=== PATIENT | female | born 1940 | race Caucasian/White ===

== ENCOUNTER → 2017-01-23 | Day surgery (SDC) | payer OTHER ==
[~2017-01-23] VITALS: Ht 165.1 cm; Wt 102.3 kg
[~2017-01-23] MED LIST: ATOR80TA45 PO; CHLORHEXIDINE GLUCONATE 2 % 1 PACK (2 CLOTHS) TOPICAL PRN; CITA20TA4 PO; DEXAMETHASONE SOD PHOS 4 MG/ML VIAL ONE; DEXI30CA2 PO; FAMOTIDINE 20 MG/2 ML VIAL ONE; FISHOIL PO; FLUT1INH INH; FOLICAP PO; LACTATED RINGER'S 1000 ML IV PRN; LISI40TA PO; METF500T PO; METO50TA PO; METOPROLOL TARTRATE 25 MG TAB PO PRN; MIDAZOLAM HCL 2 MG/2 ML VIAL ONE; MORPHINE SULFATE 2 MG/ML INJ ONE; NATU65TA PO; ONDANSETRON HCL 4 MG/2 ML VIAL IM PRN; ONDANSETRON HCL 4 MG/2 ML VIAL IV PUSH PRN; POVIDONE IODINE 5% (ANTISEPSIS KIT) 4 APPLICATIONS EACH NARE PRN; SODIUM CHLORID 0.9% 500 ML IV PRN; SULFAMETHOXAZOLE-TRIMETHOPRIM DS 800-160 MG TAB PO ONE; VITA2000 PO; traMADol HCL 50 MG TAB PO PRN
[2017-01-23 10:53] LABS: BLOOD, URINE LARGE (NEG); GLUCOSE,URINE NEG (NEG); KETONE, URINE NEG (NEG); NITRITE,URINE NEG (NEG); PH, URINE 7.5 (5.0-8.5)
[2017-01-23 10:59] LABS: BACTERIA, URINE FEW /hpf; METHOD OF COLLECTION CLEAN CATCH; RBC, URINE 100-200 /hpf (0-3); SQUAMOUS EPITHELIAL CELL URINE > 8 /hpf (0-5); URINE COLOR YELLOW (YELLW/STRAW)
[2017-01-23 11:00] LABS: COMMENT (UR) CULTURE INDICATED; CULTURE IF INDICATED CULTURE INDICATED
[2017-01-23 14:45] VITALS: BP 172/92; PULSE 74; RESP 16; TEMP 98; O2SAT 99
--- NOTE | 2017-01-24 06:34 | MP ---
cc: MARLI CORTES MD DATE OF SURGERY 01/23/2017 PREOPERATIVE DIAGNOSES Postmenopausal bleeding. Endometrial hyperplasia on imaging and endometrial polyp. POSTOPERATIVE DIAGNOSES Postmenopausal bleeding. Endometrial hyperplasia. PROCEDURE Hysteroscopy with MyoSure, polypectomy. SURGEON MD Elvin ANESTHESIA Dr. Kendall. General by LMA. COMPLICATIONS None. ESTIMATED BLOOD LOSS 100 cc. INDICATIONS This 76-year-old underwent an ultrasound to evaluate her uterus after an episode of postmenopausal bleeding. She was only able to tolerated it poorly due to fecal and urinary incontinence but there was a suggestion of an endometrial polyp. FINDINGS At the time of surgery the patient was found to have a moderate amount of tissue on endocervical curettage. The uterus sounded to 8 cm. The hysteroscopic view of the uterus showed polypoid endometrium with some suspicious and irregular blood vessels and the entire appearance is suspicious for endometrial hyperplasia. There were multiple very small polyps but no discrete large polyp. PROCEDURE The patient was taken to the operating room, placed supine on the operating room table. After general anesthesia she was prepped and draped in low stirrups. A weighted vaginal speculum was placed in the posterior vault of the vagina. The anterior lip of the cervix was grasped with a single-tooth tenaculum. The uterine cervix was dilated to accept a small curette which was used to obtain an endocervical curettage. The cervix was then further dilated to accept a MyoSure hysteroscope which was inserted and, using saline as distension media, the findings above were noted. The MyoSure device was then used to sample the endometrium thoroughly throughout the uterine cavity and especially up in the patient's right isthmic portion of the uterus near the right tubal ostia because that is where the most polypoid tissue appeared. Postoperatively the fluid deficit was under 1000 cc. The patient had tolerated the procedure well. There was some bright red bleeding postoperatively as is typical with the MyoSure. Sponge, needle and instrument counts were correct. The patient was sent home with Bactri DS for a questionable urinalysis. She did not receive preop antibiotics. Marli Cortes MD PMF/SSB /12:41 PM /6:19 AM MTDD
== END | disposition home or self-care (01) ==
LOC: PHSDC 08:01
PROVIDERS: ATTEND Obstetrics & Gynecology
DX: N84.0 Polyp of corpus uteri (principal); N95.0 Postmenopausal bleeding; R82.99 Other abnormal findings in urine; E11.9 Type 2 diabetes mellitus without complications
CPT/HCPCS: 00952; 58561; 81001; 82948; 87086; 88305; J1100; J2250; J2270; J7120

== ENCOUNTER 2017-03-28 05:13 | Observation (INO) | payer OTHER ==
[~2017-03-28] VITALS: Ht 165.1 cm; Wt 102.7 kg
[~2017-03-28 05:13] MED LIST changes: -CHLORHEXIDINE GLUCONATE 2 % 1 PACK (2 CLOTHS) TOPICAL PRN; -DEXAMETHASONE SOD PHOS 4 MG/ML VIAL ONE; -FAMOTIDINE 20 MG/2 ML VIAL ONE; -FISHOIL PO; -LACTATED RINGER'S 1000 ML IV PRN; -METOPROLOL TARTRATE 25 MG TAB PO PRN; -MIDAZOLAM HCL 2 MG/2 ML VIAL ONE; -MORPHINE SULFATE 2 MG/ML INJ ONE; -NATU65TA PO; +OMEG100046 PO; -ONDANSETRON HCL 4 MG/2 ML VIAL IM PRN; -ONDANSETRON HCL 4 MG/2 ML VIAL IV PUSH PRN; -POVIDONE IODINE 5% (ANTISEPSIS KIT) 4 APPLICATIONS EACH NARE PRN; -SODIUM CHLORID 0.9% 500 ML IV PRN; -SULFAMETHOXAZOLE-TRIMETHOPRIM DS 800-160 MG TAB PO ONE; -traMADol HCL 50 MG TAB PO PRN
[2017-03-28] MEDS ORDERED: METRONIDAZOLE 500 MG/100 ML ISONTONIC SOLN IV SCH (05:45)
[2017-03-28] MEDS ORDERED: SODIUM CHLORID 0.9% 500 ML IV PRN (05:45)
[2017-03-28] MEDS ORDERED: POVIDONE IODINE 5% (ANTISEPSIS KIT) 4 APPLICATIONS EACH NARE PRN (05:45)
[2017-03-28] MEDS ORDERED: LEVOFLOXACIN 500 MG PREMIX INJ 100 ML IV SCH (05:45)
[2017-03-28] MEDS ORDERED: CHLORHEXIDINE GLUCONATE 2 % 1 PACK (2 CLOTHS) TOPICAL PRN (05:45)
[2017-03-28] MEDS ORDERED: HEPARIN SODIUM - SQ 10,000 UNITS/ML VIAL SQ SCH (05:45)
[2017-03-28] MEDS ORDERED: LACTATED RINGER'S 1000 ML IV PRN (05:45)
[2017-03-28] MEDS ORDERED: METOPROLOL TARTRATE 25 MG TAB PO PRN (05:45)
[2017-03-28] MEDS ORDERED: LIDOCAINE 1%/EPINEPHrine 1:100,000 SOLN 50 ML VIAL INFIL ONE (09:07)
[2017-03-28] MEDS ORDERED: METHYLENE BLUE 10 MG/ML VIAL OTHER ONE ×2 (09:10→10:07)
[2017-03-28] MEDS ORDERED: oxyCODONE/ACETAMINOPHEN 5 MG/325 MG TAB PO PRN ×2 (11:15)
[2017-03-28] MEDS ORDERED: SODIUM CHLORIDE 0.9% FLUSH 10 ML FLUSH IV FLUSH PRN (11:15)
[2017-03-28] MEDS ORDERED: ONDANSETRON HCL 4 MG/2 ML VIAL IVP PRN (11:15)
[2017-03-28] MEDS ORDERED: LORazepam 0.5 MG TAB PO PRN (11:15)
[2017-03-28] MEDS ORDERED: diphenhydrAMINE HCL 25 MG CAP PO PRN (11:15)
[2017-03-28] MEDS ORDERED: DO NOT ADM ANY ANTICOAGULANT DRUGS PRN ×3 (11:40→14:00)
[2017-03-28] MEDS ORDERED: MIDAZOLAM HCL 2 MG/2 ML VIAL ONE (11:43)
[2017-03-28] MEDS ORDERED: SUGAMMADEX SODIUM 200 MG/2 ML VIAL IV PUSH ONE (11:43)
[2017-03-28] MEDS ORDERED: *MEPERIDINE 25 MG INJ VIAL PERIprocedural Use ONLY ONE (11:51)
[2017-03-28] MEDS ORDERED: PROPOFOL 200 MG/20 ML AMP IV ONE (12:00)
[2017-03-28] MEDS ORDERED: ePHEDrine/NS 25 MG/5 ML SYRINGE IV ONE (12:00)
[2017-03-28] MEDS ORDERED: VECURONIUM BROMIDE 20 MG VIAL IV ONE (12:00)
[2017-03-28] MEDS: D5-1/2 NS + KCL 20 MEQ INJ 1,000 ML IV SCH ×2 (12:00→21:36)
[2017-03-28] MEDS ORDERED: PHENYLEPH/NS 1000 MCG/10 ML SYR IV ONE (12:00)
[2017-03-28] MEDS ORDERED: ROCURONIUM INJ 50 MG/5 ML SYRINGE IV PUSH ONE (12:00)
[2017-03-28] MEDS ORDERED: ONDANSETRON HCL 4 MG/2 ML VIAL IV ONE (12:00)
[2017-03-28] MEDS ORDERED: LIDOCAINE HCL 1% PF 5 ML SYRINGE OTHER ONE (12:00)
[2017-03-28] MEDS ORDERED: *morphine SULFATE 4 MG/ML PERIprocedure ONLY ONE (12:55)
[2017-03-28] MEDS: INSULIN NovoLIN REGULAR SUPPLEMENTAL SCALE SQ SCH ×3 (13:51→21:35)
[2017-03-28] MEDS: KETOROLAC TROMETHAMINE 30 MG/ML (IVP) VIAL IVP SCH ×2 (14:00→21:36)
[2017-03-28 18:00] VITALS: BP 118/57; PULSE 89; RESP 19; TEMP 96.9; O2SAT 97
[2017-03-28 20:00] VITALS: BP 128/60; PULSE 79; RESP 18; TEMP 98.3; O2SAT 97
[2017-03-28] MEDS: SODIUM CHLORIDE 0.9% FLUSH 10 ML FLUSH IV FLUSH SCH (21:00)
[2017-03-29] VITALS: BP 111/53; PULSE 80; RESP 18; TEMP 98.7; O2SAT 97
[2017-03-29 00:31] VITALS: O2SAT 99
[2017-03-29] MEDS: KETOROLAC TROMETHAMINE 30 MG/ML (IVP) VIAL IVP SCH ×2 (03:48→08:36)
[2017-03-29 04:00] VITALS: BP 129/58; PULSE 80; RESP 20; TEMP 98.5; O2SAT 97
[2017-03-29 05:47] LABS: AUTOMATED NEUTROPHIL # 5.9 TH/MM3 (1.8-7.7); BASOPHIL % 0.2 % (0.0-2.0); EOSINOPHIL % 0.5 % (0.0-4.0); HEMATOCRIT 33.1 % (35.0-46.0); HEMOGLOBIN 11.1 GM/DL (11.6-15.3); LYMPH % 22.2 % (9.0-44.0); MEAN CELL VOLUME 95.4 FL (80.0-100.0); MEAN CORPUSCULAR HGB CONC 33.5 % (32.0-36.0); MONO % 10.2 % (0.0-8.0); MONOCYTE # 0.9 TH/MM3 (0-0.9); NEUT % 66.9 % (16.0-70.0); PLATELET COUNT 216 TH/MM3 (150-450); RED BLOOD COUNT 3.47 MIL/MM3 (4.00-5.30); RED CELL DISTRIBUTION WIDTH 13.4 % (11.6-17.2); WHITE BLOOD COUNT 8.9 TH/MM3 (4.0-11.0)
[2017-03-29 06:02] LABS: BICARBONATE 27.6 MEQ/L (21.0-32.0); CALCIUM 8.1 MG/DL (8.5-10.1); CREATININE 0.56 MG/DL (0.50-1.00)
[2017-03-29] MEDS ORDERED: OXYC1TAB63 PO (07:49)
[2017-03-29 08:00] VITALS: BP 127/62; PULSE 75; RESP 20; TEMP 98.5; O2SAT 97
[2017-03-29] MEDS: INSULIN NovoLIN REGULAR SUPPLEMENTAL SCALE SQ SCH ×2 (08:00→12:00)
[2017-03-29] MEDS: D5-1/2 NS + KCL 20 MEQ INJ 1,000 ML IV SCH (08:37)
[2017-03-29] MEDS: SODIUM CHLORIDE 0.9% FLUSH 10 ML FLUSH IV FLUSH SCH (08:37)
[2017-03-29] MEDS ORDERED: LISINOPRIL 20 MG TAB PO SCH (09:00)
[2017-03-29] MEDS ORDERED: METOPROLOL TARTRATE 50 MG TAB PO SCH (09:00)
[2017-03-29] MEDS ORDERED: ATORVASTATIN 80 MG TAB PO SCH (09:00)
[2017-03-29] MEDS ORDERED: CITALOPRAM HYDROBROMIDE 20 MG TAB PO SCH (09:00)
[2017-03-29] MEDS ORDERED: PANTOPRAZOLE SOD 20 MG DELAYED RELEASE TAB PO SCH (09:00)
[2017-03-29] MEDS ORDERED: FLUTICASONE 100 MCG/VILANTEROL 25 MCG INHALER INH SCH (09:00)
[2017-03-29] MEDS ORDERED: PNEUMOCOCCAL POLYVALENT INJ 25 MCG/0.5 ML SYR IM ONE (10:00)
[2017-03-29 12:00] VITALS: BP 112/53; PULSE 67; RESP 19; TEMP 98.4; O2SAT 95
--- NOTE | 2017-04-01 12:32 | MP ---
cc: PRAKASH CORTES MD,DEBI CASILLAS MD DATE OF SURGERY 03/28/2017 PREOPERATIVE DIAGNOSIS Endometrial cancer. POSTOPERATIVE DIAGNOSIS Endometrial cancer with extensive adhesions. PROCEDURE Robotic-assisted laparoscopic hysterectomy, bilateral salpingo-oophorectomy, extensive lysis of adhesions, peritoneal biopsy. SURGEON Teodora Tracy. [employer]. ANESTHESIA General endotracheal. ESTIMATED BLOOD LOSS 200 cc. IV FLUIDS 1800 cc. URINE OUTPUT 300 cc. HISTORY A 76-year-old female with postmenopausal bleeding. Biopsy showed grade 1 endometrial adenocarcinoma. She was counseled regarding treatment and was in favor of surgery. She is seen again in the pre-op holding area where the findings are reviewed and the plan for surgery is discussed. Questions were asked and answered. She expressed good understanding and would like to move forward with surgery. FINDINGS The uterus sounds to approximately 6.5 cm. The uterus grossly appears normal. Tubes and ovaries grossly appear normal. There are adhesions in the pelvis. The colon is stuck to the left pelvic sidewall, adherent, blocking access to the left pelvic structures. There are adhesions in the region of the right lower quadrant, ileocecal region, and some adhesions between the omentum and the anterior abdominal wall consistent with her prior appendicitis as well as probable prior diverticulitis. Some diverticulosis was noted but without active diverticulitis. There was a single suspicious implant of the peritoneum on the right upper quadrant which was removed via excisional biopsy that was sent for frozen section analysis and was benign. The peritoneal cavity otherwise was smooth. Liver and diaphragm edges were smooth. Omentum, large and small bowel and adjacent mesentery were without obvious tumor implants. The uterus once removed showed the tumor to be approximately 2.5 cm. There was no obvious invasion into the myometrium, no obvious cervical extension. STATEMENT OF COMPLEXITY/MODIFIER The complexly of this case was increased for two principal reasons. One is her body habitus. She has a BMI of 38.5 with obesity-associated morbidity of diabetes. Also, there were extensive pelvic adhesions requiring significant additional time to lyse adhesions to gain safe access into the perineal cavity, restore normal anatomy and accomplish surgical objectives. Modifier should be applied accordingly. DETAILS OF PROCEDURE She was taken to the operating room, placed in the dorsal lithotomy position after general endotracheal anesthesia was administered. A timeout was undertaken. She was identified by sight recognition and hospital ID bracelet, and the proposed procedure was reviewed and confirmed. She was carefully positioned in padded Donis stirrups. Her arms were padded and secured to the sides. She was further secured to the operating table with eggcrate padding and tape in an across chest over the shoulder fashion. All sites were noted to be properly aligned with no malalignments or pressure points. She was prepped and draped in sterile fashion, placed in lithotomy position. The cervix was grasped. The uterine cavity was sounded. The cervix was dilated and a large VCare manipulator was used. Even though the uterus and cervix were small she had a very prominent rectocele and a mild to moderate cystocele with some prolapse and redundancy of the vaginal mucosa and the large VCare was used to help retract this tissue. We completed draping in anticipation of laparoscopy with change of sterile gloves. We confirmed that an orogastric tube was in the stomach on suction. With manual elevation of the abdominal wall under direct laparoscopic visualization a 5 mm cannula was placed in the left upper quadrant. An atraumatic entry was confirmed. Carbon dioxide gas was insufflated. Under laparoscopic visualization a 12 mm cannula was placed in the midline above the umbilicus. An 8 mm cannula was placed in the right upper quadrant and left lateral quadrant, and the original 5 mm cannula exchanged for an 8 mm cannula. Sharp dissection and blunt dissection were used to take down adhesions between the omentum and the anterior abdominal wall and free distal omentum from its adherence against the left pelvic sidewall and pelvic structures until the omentum could be mobilized. Additional adhesions were taken down in the right lower quadrant to help mobilize the small bowel. She was placed in Trendelenburg position. Peritoneal washings were obtained for cytology. The anatomy was explored with findings as described above. The small bowel was folded back on its mesenteric root to the extent possible. Three Ray-Jose Roberto sponges were placed around the root of the small bowel mesentery. The robotic system was brought into the operative field and attached in the usual fashion. Monopolar scissors, fenestrated bipolar forceps and ProGrasp manipulators were placed in arms #1, 2 and 3 respectively, and I took my place at the surgeon's console. Sharp dissection was continued to mobilize adhesions in the right lower quadrant from the prior appendicitis. The appendix was surgically absent. The ileocecal region was mobilized as it was scarred below the pelvic brim. The adhesions were taken down to mobilize the ileocecal region above the pelvic brim to gain access to the right pelvic structures. The right round ligament was isolated, cauterized and transected. The anterior and posterior leafs of the broad ligament were opened. The right ureter was identified. The right infundibulopelvic ligament was isolated. The intervening peritoneum was opened. The infundibulopelvic ligament was isolated to the level of the pelvic brim where it was cauterized and transected. The posterior peritoneum was opened along the right side of the uterus and cervix. Adhesions were taken down to free the cul-de-sac. The right vesicouterine peritoneum was dissected off the lower uterine segment and cervix. The right uterine vessels were skeletonized. The right uterine vessels were cauterized. They were fairly hemorrhagic prominent vessels and they were not yet transected until the contralateral vasculature was secured. Additional adhesions were taken down mobilizing the colon from its attachments against the right pelvic sidewall and to free additional adhesions from the cul-de-sac to mobilize the left ovary which was stuck against the left pelvic sidewall posteriorly. The left round ligament was isolated, cauterized and transected. The anterior and posterior leafs of the broad ligament were opened. The left ureter was identified. The left infundibulopelvic ligament was isolated. The intervening peritoneum was opened. The infundibulopelvic ligament was isolated to the level of the pelvic brim where it was cauterized and transected. The posterior peritoneum was opened along the left side of the uterus and cervix. The left vesicouterine peritoneum was dissected off the lower uterine segment and cervix. The left uterine vessels were skeletonized. The left uterine vessels were cauterized. The uterus was now blanched as the major blood supply was secured. The left uterine vessels were transected. The cardinal, paracervical and uterosacral ligaments were isolated, cauterized and transected in a stepwise fashion thereby freeing the attachments along the left side of the uterus and cervix. Attention was redirected toward the right side where the right uterine vessels were transected. The cardinal, paracervical and uterosacral ligaments were isolated, cauterized and transected in a stepwise fashion thereby freeing attachments along the right side of the uterus and cervix. A circumferential colpotomy was performed the cervix from the upper vagina. The specimen was withdrawn transvaginally including uterus, cervix, tubes and ovaries, and a pneumo-occluder balloon was placed in the vagina to maintain pneumoperitoneum. Instruments 1 and 3 were exchanged for needle drivers as a 0 Vicryl suture was introduced. The vaginal cuff was closed starting at the left corner, full-thickness closure including the posterior peritoneum, edge of the uterosacral ligament and tied via instrument tie. Full-thickness running continuous closure was held on countertraction across the vaginal apex to the contralateral corner where it was similarly fixed, secured and tied via instrument tie. The needle was cut and removed. The pelvis was thoroughly irrigated. The integrity of the bladder was confirmed by filling the bladder with saline dyed with methylene blue. The bladder distended nicely under pressure. There were no areas of weakness in the bladder wall, no areas of blue, certainly no extravasation of dye, and a good margin between the vaginal cuff suture line and the bladder edge. The peritoneum and some perivesical fat was bleeding a little bit and this was re-approximated and rendered hemostatic with [id number] 3-0 Vicryl sutures tied via instrument tie. The needle was cut and removed. The bladder was drained. The pelvis was again irrigated. There was good peristalsis of ureters bilaterally. The sites were hemostatic and to assist in continued hemostasis some hemostatic Martha powder was placed across the vaginal cuff and pelvic sidewalls. Preliminary pathology had returned showing no invasive disease. It was felt that further dissection would be associated with morbidity that exceeded benefit. Therefore, it is felt that all reasonable surgical objectives in this patient had been completed. The robotic instruments were removed. The robotic system was disengaged from the operative field. I entered the bedside under sterile condition. The 12 mm fascial defect was closed with 0 Vicryl sutures using a needle pass fascia closure apparatus. This rendered the fascia completely airtight and hemostatic. The remaining cannulas were withdrawn. Carbon dioxide gas was removed from the peritoneal cavity. 3-0 Vicryl subcutaneous, 3-0 Vicryl subcuticular and Steri-Strips were used to close these incisions. She was placed in lithotomy position. Pelvic exam confirmed the vaginal cuff was well-supported and hemostatic. There were no vaginal lacerations. There was a little bit of mucosal irritation near the introitus and the remainder of the Martha hemostatic powder was placed in this region in the vagina. There were no remaining foreign objects in the vagina. Preliminary counts as well as now final counts were correct. It should be noted prior to closure of the fascial laparoscopic incision each of the three Ray-Jose Roberto sponges that were placed in the peritoneal cavity had been removed through the 12 mm cannula. Each were inspected and noted to be removed in their entirety. Visual inspection had confirmed there were no remaining foreign objects in the peritoneum. Now given hemostasis and correct counts, she was returned to dorsal supine position and was pending reversal of anesthesia when I left the operating room to precede her to the post-anesthesia care unit. Teodora Tracy MD KM/BT : 04/01/2017/7:07 AM /12:02 PM
--- NOTE | 2017-04-02 16:56 | MD ---
cc: PRAKASH CORTES MD,DEBI CASILLAS MD ADMISSION DATE: 03/28/2017 DISCHARGE DATE: 03/29/2017 PROCEDURE: Robotic-assisted laparoscopic hysterectomy bilateral salpingo-oophorectomy, Extensive lysis of adhesions. DIAGNOSIS Endometrial cancer. HOSPITAL COURSE She did well in early postop period and remained hemodynamically stable tolerating oral intake. Hampton catheter removed pending voiding ins and outs 1919/0 LABORATORY DATA Postop day #1. H&H the 11.1 and 33.1. Electrolytes essentially normal BUN and creatinine 50.56 PHYSICAL EXAMINATION IN GENERAL: Afebrile, pulse 79-89, respirations 15-20, blood pressure 111-129 over 56-60, O2 saturations greater than equal to 97%. She is alert and oriented x3. LUNGS: Clear mild rales bases. CARDIOVASCULAR SYSTEM: Regular rate and rhythm. ABDOMEN: Soft. Incisions clean and dry. GYNECOLOGY: No bleeding. EXTREMITIES: Nontender SCDs intact. ASSESSMENT Postop day #1. Preliminary pathology and findings at the time of surgery and steps taken were discussed and reviewed, activities and restrictions are again reviewed. Questions were asked and answered. She expressed good understanding. PLAN 1. The patient is discharged to home today. 2. She is to resume prior medications prescription for Percocet for pain. 3. She is to contact our office should she have any questions or problems between now and the time of followup and she is to contact our office also to ensure that she has followup within approximately 2 weeks. MD WILLIAM Olmstead/jennifer /7:51 AM /4:37 PM YASMIN
== END 2017-03-29 15:14 | disposition home health service (06) ==
LOC: HSDC 05:13 → HSDI 11:14 → N07A 15:16
PROVIDERS: ADMIT Obstetrics & Gynecology Gynecologic Oncology; ATTEND Obstetrics & Gynecology Gynecologic Oncology
DX: C54.1 Malignant neoplasm of endometrium (principal); N95.0 Postmenopausal bleeding; N73.6 Female pelvic peritoneal adhesions (postinfective); E78.00 Pure hypercholesterolemia, unspecified; I12.9 Hypertensive chronic kidney disease with stage 1 through stage 4 chronic kidney disease, or unspecified chronic kidney disease; E11.22 Type 2 diabetes mellitus with diabetic chronic kidney disease; N18.9 Chronic kidney disease, unspecified; J44.9 Chronic obstructive pulmonary disease, unspecified; E66.9 Obesity, unspecified; Z68.38 Body mass index [BMI] 38.0-38.9, adult; Z23 Encounter for immunization; Z79.84 Long term (current) use of oral hypoglycemic drugs
CPT/HCPCS: 00840; 58552; 80048; 82948; 85025; 86850; 86900; 86901; 88112; 88305; 88307; 88331; 90732; 94150; 96361; 96372; 96374; 96376; G0009; G0378; J1644; J1885; J2175; J2250; J2270; J2370; J2405; J3010; J3480; J7120; 90471

== ENCOUNTER 2017-04-21 16:18 | Inpatient (IN) | payer OTHER, MEDICARE ==
[~2017-04-21] VITALS: Ht 165.1 cm; Wt 101.0 kg
[2017-04-21] VITALS (7 sets, daily range): BP systolic 121–143; BP diastolic 58–66; PULSE 22–102; RESP 18–22; TEMP 98–99.3; O2SAT 94–96
[~2017-04-21 16:18] MED LIST changes: +OXYC1TAB63 PO
[2017-04-21] MEDS ORDERED: IOHEXOL 350 MG/ML 10 ML VIAL (for RAD DIAG) IVCONTRAST ONE (16:19)
[2017-04-21] MEDS ORDERED: RANO500 PO (16:45)
[2017-04-21] MEDS ORDERED: SODIUM CHLORIDE 0.9% FLUSH 10 ML FLUSH IVF PRN (16:45)
--- NOTE | 2017-04-21 17:05 | PD ---
HPI Chief Complaint: Pain: Acute or Chronic Time Seen by Provider: 16:38 Travel History International Travel<30 days: No Contact w/Intl Traveler<30days: No Traveled to known affect area: No History of Present Illness HPI Patient is a 76-year-old female presenting to the emergency room for evaluation of chest pain. Patient states it started 2 days ago, pain is midsternal radiating to the right anterior chest wall and to her back. She states the pain radiates down her arm, she currently rates her pain an 8 out of 10 and states it is pressure-like and painful. She reports shortness of breath which is worse with exertion. She reports increased activity intolerance over the last 2 days. She reports that she is unable to even do laundry. She denies any dizziness, diaphoresis nausea, vomiting, abdominal pain. Patient had a hysterectomy 2 weeks ago. She has a history of hypertension, type 2 diabetes, hyperlipidemia, GERD, asthma. Symptom onset was gradual, symptom severity is moderate, there are no alleviating factors, symptoms are exacerbated with movement. PFSH Past Medical History Hx Anticoagulant Therapy: Yes Asthma: Yes Depression: Yes Cancer: Yes (CERVICAL CANCER) High Cholesterol: Yes Diabetes: Yes Patient Takes Glucophage: Yes GERD: Yes Hypertension: Yes Respiratory: Yes (ASTHMA) Tetanus Vaccination: > 5 Years Influenza Vaccination: Yes ?: Not : 3 Para: 3 Past Surgical History Abdominal Surgery: Yes (APPENDECTOMY) Eye Surgery: Yes (BILATERAL CATARACT EXTRACTION WITH IOL) Hysterectomy: Yes Joint Replacement: Yes (RT KNEE) Tonsillectomy: Yes Social History Alcohol Use: Yes (RARE) Tobacco Use: No Substance Use: No Allergies-Medications (Allergen,Severity, Reaction): Coded Allergies: Penicillins (Verified Allergy, Severe, Shortness of Breath, 03/28/17) SWELLING aspirin (Verified Allergy, Severe, Swelling, 03/28/17) SWELLING WITH SHORTNESS OF BREATH Reported Meds & Prescriptions Reported Meds & Active Scripts Active Reported Ranexa ER 12 HR (Ranolazine) 500 Mg Tab 500 Mg PO BID Fish Oil 1,000 mg Softgel ([place]-3/Dha/Epa/Fish Oil) 1,000 Mg (120 Mg-180 Mg) Capsule 1 Cap PO DAILY Vitamin D3 (Cholecalciferol) 2,000 Unit Cap 2,000 Units PO DAILY Metoprolol Tartrate 50 Mg Tab 25 Mg PO DAILY Metformin (Metformin HCl) 500 Mg Tab 500 Mg PO BIDPC Lisinopril 40 Mg Tab 40 Mg PO DAILY Dexilant (Dexlansoprazole) 30 Mg Cap.bp 1 Cap PO DAILY Citalopram (Citalopram Hydrobromide) 20 Mg Tab 20 Mg PO DAILY Breo Ellipta Inh (Fluticasone/Vilanterol) 100-25 Mcg/Act Inh 1 Puff INH DAILY Use daily at the same time. Atorvastatin (Atorvastatin Calcium) 80 Mg Tab 80 Mg PO DAILY Animi-3 1 mg (Folic Acid-Vit B6-Vit B12-Vit) 500-1,000-1 Cap 2 Cap PO DAILY Review of Systems Except as stated in HPI: all other systems reviewed are Neg Eyes: No: Blurred Vision HENT: No: Headaches Cardiovascular: Positive: Chest Pain or Discomfort, Tachycardia, Dyspnea on exertion, No: Palpitations, Edema Respiratory: Positive: Shortness of Breath, No: Cough Gastrointestinal: Positive: Nausea, No: Vomiting, Abdominal Pain Musculoskeletal: No: Myalgias Neurologic: No: Weakness, Dizziness, Syncope Physical Exam Narrative GENERAL: Overweight, well-developed, alert elderly female. Presenting in no acute distress. SKIN: Warm and dry. Rash to abdominal fold, hyperpigmented border with central clearing. No skin excoriation. HEAD: Atraumatic. Normocephalic. EYES: Pupils equal and round. No scleral icterus. No injection or drainage. ENT: No nasal bleeding or discharge. Mucous membranes pink and moist. NECK: Trachea midline. No JVD. CARDIOVASCULAR: Tachycardic, no murmur appreciated. RESPIRATORY: No accessory muscle use. Breath sounds equal bilaterally, slightly diminished in bases.. GASTROINTESTINAL: Abdomen soft, mildly tender over surgical incisions, nondistended. Hepatic and splenic margins not palpable. No rebound, no guarding. MUSCULOSKELETAL: Extremities without clubbing, cyanosis, or edema. No obvious deformities. NEUROLOGICAL: Awake and alert. No obvious cranial nerve deficits. Motor grossly within normal limits. Five out of 5 muscle strength in the arms and legs. Normal speech. PSYCHIATRIC: Appropriate mood and affect; insight and judgment normal. Data Data Last Documented VS Vital Signs Date Time Temp Pulse Resp B/P (MAP) Pulse Ox O2 Delivery O2 Flow Rate FiO2 04/21/17 17:43 98.0 97 20 143/65 (91) 96 Nasal Cannula 2.00 Orders Orders Electrocardiogram (04/21/17 16:40) B-Type Natriuretic Peptide (04/21/17 16:40) Ckmb (Isoenzyme) Profile (04/21/17 16:40) Complete Blood Count With Diff (04/21/17 16:40) Comprehensive Metabolic Panel (04/21/17 16:40) Magnesium (Mg) (04/21/17 16:40) Prothrombin Time / Inr (Pt) (04/21/17 16:40) Act Partial Throm Time (Ptt) (04/21/17 16:40) Troponin I (04/21/17 16:40) Lipase (04/21/17 16:40) Chest, Single Ap (04/21/17 16:40) Ecg Monitoring (04/21/17 16:40) Bilateral Bp Monitoring (04/21/17 16:40) Iv Access Insert/Monitor (04/21/17 16:40) Oximetry (04/21/17 16:40) Oxygen Administration (04/21/17 16:40) Sodium Chloride 0.9% Flush (Ns Flush) (04/21/17 16:45) Ct Pulmonary Angiogram (04/21/17 ) Urinalysis - C+S If Indicated (04/21/17 17:39) Iohexol 350 Inj (Omnipaque 350 Inj) (04/21/17 16:19) Enoxaparin Inj (Lovenox Inj) (04/21/17 19:00) Oxycodone-Acetamin 5-325 Mg (Percocet (04/21/17 19:00) Admit Order (Ed Use Only) (04/21/17 19:19) Labs Laboratory Tests Test 04/21/17 16:35 04/21/17 18:40 White Blood Count 16.9 TH/MM3 Red Blood Count 3.99 MIL/MM3 Hemoglobin 12.5 GM/DL Hematocrit 37.8 % Mean Corpuscular Volume 94.6 FL Mean Corpuscular Hemoglobin 31.3 PG Mean Corpuscular Hemoglobin Concent 33.1 % Red Cell Distribution Width 13.4 % Platelet Count 251 TH/MM3 Mean Platelet Volume 7.8 FL Neutrophils (%) (Auto) 80.1 % Lymphocytes (%) (Auto) 9.5 % Monocytes (%) (Auto) 10.0 % Eosinophils (%) (Auto) 0.2 % Basophils (%) (Auto) 0.2 % Neutrophils # (Auto) 13.5 TH/MM3 Lymphocytes # (Auto) 1.6 TH/MM3 Monocytes # (Auto) 1.7 TH/MM3 Eosinophils # (Auto) 0.0 TH/MM3 Basophils # (Auto) 0.0 TH/MM3 CBC Comment DIFF FINAL Differential Comment Prothrombin Time 10.7 SEC Prothromb Time International Ratio 1.1 RATIO Activated Partial Thromboplast Time 22.8 SEC Blood Urea Nitrogen 10 MG/DL Creatinine 0.68 MG/DL Random Glucose 115 MG/DL Total Protein 6.5 GM/DL Albumin 3.0 GM/DL Calcium Level 8.4 MG/DL Magnesium Level 1.5 MG/DL Alkaline Phosphatase 102 U/L Aspartate Amino Transf (AST/SGOT) 13 U/L Alanine Aminotransferase (ALT/SGPT) 17 U/L Total Bilirubin 1.2 MG/DL Sodium Level 137 MEQ/L Potassium Level 3.9 MEQ/L Chloride Level 101 MEQ/L Carbon Dioxide Level 30.3 MEQ/L Anion Gap 6 MEQ/L Estimat Glomerular Filtration Rate 84 ML/MIN Total Creatine Kinase 29 U/L Troponin I LESS THAN 0.02 NG/ML B-Type Natriuretic Peptide 28 PG/ML Lipase 178 U/L MDM Medical Decision Making Medical Screen Exam Complete: Yes Emergency Medical Condition: Yes Interpretation(s) Laboratory Tests Test 04/21/17 16:35 White Blood Count 16.9 TH/MM3 Red Blood Count 3.99 MIL/MM3 Hemoglobin 12.5 GM/DL Hematocrit 37.8 % Mean Corpuscular Volume 94.6 FL Mean Corpuscular Hemoglobin 31.3 PG Mean Corpuscular Hemoglobin Concent 33.1 % Red Cell Distribution Width 13.4 % Platelet Count 251 TH/MM3 Mean Platelet Volume 7.8 FL Neutrophils (%) (Auto) 80.1 % Lymphocytes (%) (Auto) 9.5 % Monocytes (%) (Auto) 10.0 % Eosinophils (%) (Auto) 0.2 % Basophils (%) (Auto) 0.2 % Neutrophils # (Auto) 13.5 TH/MM3 Lymphocytes # (Auto) 1.6 TH/MM3 Monocytes # (Auto) 1.7 TH/MM3 Eosinophils # (Auto) 0.0 TH/MM3 Basophils # (Auto) 0.0 TH/MM3 CBC Comment DIFF FINAL Differential Comment Prothrombin Time 10.7 SEC Prothromb Time International Ratio 1.1 RATIO Activated Partial Thromboplast Time 22.8 SEC Blood Urea Nitrogen 10 MG/DL Creatinine 0.68 MG/DL Random Glucose 115 MG/DL Total Protein 6.5 GM/DL Albumin 3.0 GM/DL Calcium Level 8.4 MG/DL Magnesium Level 1.5 MG/DL Alkaline Phosphatase 102 U/L Aspartate Amino Transf (AST/SGOT) 13 U/L Alanine Aminotransferase (ALT/SGPT) 17 U/L Total Bilirubin 1.2 MG/DL Sodium Level 137 MEQ/L Potassium Level 3.9 MEQ/L Chloride Level 101 MEQ/L Carbon Dioxide Level 30.3 MEQ/L Anion Gap 6 MEQ/L Estimat Glomerular Filtration Rate 84 ML/MIN Total Creatine Kinase 29 U/L Troponin I LESS THAN 0.02 NG/ML B-Type Natriuretic Peptide 28 PG/ML Lipase 178 U/L Vital Signs Date Time Temp Pulse Resp B/P (MAP) Pulse Ox O2 Delivery O2 Flow Rate FiO2 04/21/17 16:43 96 Nasal Cannula 2.00 04/21/17 16:43 22 96 Nasal Cannula 2.00 04/21/17 16:40 101 22 133/66 (88) 96 Nasal Cannula 2.00 121/58 (79) 04/21/17 16:32 98.1 102 22 133/66 (88) 95 Differential Diagnosis ACS versus AMI versus [place] versus pneumonia versus pulmonary embolism versus other Narrative Course Patient is a 76-year-old female presented for evaluation of chest pain. Patient is tachycardic and reporting shortness of breath on arrival. Vital signs are stable. Labs and imaging ordered and pending. Patient did have a hysterectomy 2 weeks ago, including the differential would be a pulmonary embolism. Initial EKG shows sinus tachycardia, possible left atrial enlargement , possible left ventricular hypertrophy. Rate is 102, this is reviewed by my attending physician. Chest x-ray which is read by the radiologist shows no acute findings. Minimal basilar atelectasis. Cardiac silhouette is mildly enlarged. CBC with a white blood cell count of 16.9 with left shift Chemistry with no acute findings Cardiac enzymes negative 1 set BNP is 28 CT angiogram shows positive for pulmonary embolism and subsegmental arteries supplying bilateral upper lobes. No focal infiltrates are seen. Patient was started on Lovenox 100 mg/kg. [facility] patient for admission. Pt made aware of findings and plan. Percocet ordered for pain. Discussed with Dr. Harper. Admit orders placed. Diagnosis Primary Impression: Pulmonary embolism Qualified Codes: I26.99 - Other pulmonary embolism without acute cor pulmonale Admitting Information Admitting Physician Requests: Admit Condition: Stable Miriam Shipley Apr 21, 2017 17:04
--- NOTE | 2017-04-21 17:08 | RADRPT ---
EXAM DATE/TIME: 04/21/2017 16:47 [facility] COMPARISON: No previous studies available for comparison. INDICATIONS : Right sided chest pain for three days. MEDICAL HISTORY : Chronic obstructive pulmonary disease. Diabetes mellitus type II. Hypertension. SURGICAL HISTORY : None. ENCOUNTER: Initial ACUITY: 3 days PAIN SCORE: 9/10 LOCATION: Right chest FINDINGS: A single view of the chest demonstrates the lungs to be symmetrically aerated without evidence of mas s, infiltrate or effusion. The cardiomediastinal contours are prominent. Osseous structures are inta ct. CONCLUSIO No acute findings. Minimal basilar atelectasis. Cardiac silhouette mildly enlarged. Campbell Ball MD on April 21, 2017 at 17:06 Board Certified Radiologist. This report was verified electronically.
--- NOTE | 2017-04-21 17:27 | PD ---
Physical Exam Date Seen by Provider: Apr 21, 2017 Narrative This patient presents for the evaluation of a 2 day history of chest pain. Data Data Last Documented VS Vital Signs Date Time Temp Pulse Resp B/P (MAP) Pulse Ox O2 Delivery O2 Flow Rate FiO2 04/21/17 16:43 96 Nasal Cannula 2.00 04/21/17 16:43 22 04/21/17 16:40 101 133/66 (88) 121/58 (79) 04/21/17 16:32 98.1 Orders Orders Electrocardiogram (04/21/17 16:40) B-Type Natriuretic Peptide (04/21/17 16:40) Ckmb (Isoenzyme) Profile (04/21/17 16:40) Complete Blood Count With Diff (04/21/17 16:40) Comprehensive Metabolic Panel (04/21/17 16:40) Magnesium (Mg) (04/21/17 16:40) Prothrombin Time / Inr (Pt) (04/21/17 16:40) Act Partial Throm Time (Ptt) (04/21/17 16:40) Troponin I (04/21/17 16:40) Lipase (04/21/17 16:40) Chest, Single Ap (04/21/17 16:40) Ecg Monitoring (04/21/17 16:40) Bilateral Bp Monitoring (04/21/17 16:40) Iv Access Insert/Monitor (04/21/17 16:40) Oximetry (04/21/17 16:40) Oxygen Administration (04/21/17 16:40) Sodium Chloride 0.9% Flush (Ns Flush) (04/21/17 16:45) Ct Pulmonary Angiogram (04/21/17 ) MDM Supervised Visit with SHAMA: Yes Interpretation(s) EKG shows a sinus rhythm with a rate of 102. Narrative Course I, Dr. Gonzalez, have reviewed the advance practice practitioner's documentation and am in agreement, met with the patient face to face, made the diagnosis, and the medical decision making was done by me. *My assessment and Findings: Patient is awake and alert and in no distress. Her chief complaint to me was that she needed to go to the bathroom. Please see Miriam Velazquez NP's note for results of laboratory and radiographic evaluation, ED course, final diagnosis and disposition Rhiannon Gonzalez MD Apr 21, 2017 17:27
[2017-04-21 17:34] LABS: AUTOMATED NEUTROPHIL # 13.5 TH/MM3 (1.8-7.7); BASOPHIL % 0.2 % (0.0-2.0); EOSINOPHIL % 0.2 % (0.0-4.0); HEMATOCRIT 37.8 % (35.0-46.0); HEMOGLOBIN 12.5 GM/DL (11.6-15.3); LYMPH % 9.5 % (9.0-44.0); LYMPHOCYTE # 1.6 TH/MM3 (1.0-4.8); MEAN CELL VOLUME 94.6 FL (80.0-100.0); MEAN CORPUSCULAR HEMOGLOBIN 31.3 PG (27.0-34.0); MEAN CORPUSCULAR HGB CONC 33.1 % (32.0-36.0); MEAN PLATELET VOLUME 7.8 FL (7.0-11.0); MONOCYTE # 1.7 TH/MM3 (0-0.9); NEUT % 80.1 % (16.0-70.0); PLATELET COUNT 251 TH/MM3 (150-450); RED BLOOD COUNT 3.99 MIL/MM3 (4.00-5.30); RED CELL DISTRIBUTION WIDTH 13.4 % (11.6-17.2); WHITE BLOOD COUNT 16.9 TH/MM3 (4.0-11.0)
[2017-04-21 17:43] LABS: INTERNATIONAL NORMALIZED RATIO 1.1 RATIO; PROTHROMBIN TIME - PATIENT 10.7 SEC (9.8-11.6)
[2017-04-21 18:11] LABS: AST (GOT) 13 U/L (15-37); BICARBONATE 30.3 MEQ/L (21.0-32.0); BLOOD UREA NITROGEN 10 MG/DL (7-18); CALCIUM 8.4 MG/DL (8.5-10.1); CHLORIDE 101 MEQ/L (98-107); CREATININE 0.68 MG/DL (0.50-1.00); GLOMERULAR FILTRATION RATE 84 ML/MIN (>89); GLUCOSE,RANDOM 115 MG/DL (74-106); MAGNESIUM 1.5 MG/DL (1.5-2.5); SODIUM (NA) 137 MEQ/L (136-145)
[2017-04-21 18:16] LABS: ALKALINE PHOSPHATASE 102 U/L (45-117); ALT (GPT) 17 U/L (10-53); TOTAL BILIRUBIN ADULT 1.2 MG/DL (0.2-1.0); TOTAL PROTEIN 6.5 GM/DL (6.4-8.2); TROPONIN I LESS THAN 0.02 NG/ML (0.02-0.05)
--- NOTE | 2017-04-21 18:47 | RADRPT ---
EXAM DATE/TIME: 04/21/2017 18:18 [facility] COMPARISON: CHEST SINGLE AP, April 21, 2017, 16:47. INDICATIONS : Chest pain and shortness of breath. IV CONTRAST: 70 cc Omnipaque 350 (iohexol) IV RADIATION DOSE: 10.69 CTDIvol (mGy) MEDICAL HISTORY : Cardiovascular disease. Hypertension. Diabetes mellitus type 2.Cervical cancer. SURGICAL HISTORY : Appendectomy. Hysterectomy. ENCOUNTER: Initial ACUITY: 2 days PAIN SCALE: 6/10 LOCATION: Right lower chest TECHNIQUE: Volumetric scanning of the chest was performed using a pulmonary embolism protocol MIP images were re constructed. Using automated exposure control and adjustment of the mA and/or kV according to patien t size, radiation dose was kept as low as reasonably achievable to obtain optimal diagnostic quality images. DICOM format image data is available electronically for review and comparison. Follow-up recommendations for detected pulmonary nodules are based at a minimum on nodule size and pa tient risk factors according to Fleischner Society Guidelines. FINDINGS: PULMONARY ARTERIES: Filling defects are seen in one medial subsegmental pulmonary artery medial upper lobe and into subse gmental arteries in the left upper lobe. No central defects in the main, left, or right pulmonary ar teries. LUNGS: Minimal linear scarring or atelectasis at the right lung base. No focal areas of consolidation. PLEURAE: There is no pleural thickening or pleural effusion. MEDIASTINUM: Pretracheal lymph node measures 1.3 cm. No other enlarged nodes seen. CONCLUSION: 1. Positive for pulmonary embolism in subsegmental arteries supplying bilateral upper lobes. 2. No focal infiltrates seen. Stevo Colon MD on April 21, 2017 at 18:40 Board Certified Radiologist. This report was verified electronically.
[2017-04-21] MEDS ORDERED: oxyCODONE/ACETAMINOPHEN 5 MG/325 MG TAB PO ONE (19:00)
[2017-04-21] MEDS ORDERED: ENOXAPARIN SODIUM 100 MG/ML SYRINGE SQ ONE (19:00)
[2017-04-21 19:22] LABS: BACTERIA, URINE RARE /hpf; BILIRUBIN, URINE NEG (NEG); BLOOD, URINE NEG (NEG); GLUCOSE,URINE NEG (NEG); KETONE, URINE NEG (NEG); NITRITE,URINE NEG (NEG); SQUAMOUS EPITHELIAL CELL URINE 6 /hpf (0-5); URINE COLOR YELLOW (YELLW/STRAW); URINE LEUKOCYTE ESTERASE MOD (NEG)
--- NOTE | 2017-04-21 19:29 | HHI.HP ---
HPI Service [facility] Primary Care Physician Non-Staff Admission Diagnosis PULMONARY EMBOLISM Diagnoses: (1) Pulmonary embolism Diagnosis: Principal (2) Chest pain Diagnosis: Principal (3) Endometrial cancer Diagnosis: Principal (4) Leukocytosis Diagnosis: Principal (5) Dehydration Diagnosis: Principal (6) DM (diabetes mellitus) Diagnosis: Principal Travel History International Travel<30 Days: No Contact w/Intl Traveler <30 Da: No Traveled to Known Affected Are: No History of Present Illness This is a 76-year-old female with a PMH of Depression, HTN, DM and Endometrial CA who presented to the ER w/ complaints of chest pain and SOB x2 days. States pain is substernal, intermittent, 8-9/10, w/ radiation to right shoulder, worse w/ inspiration. Denies fever, chills or cough. Follows w/ Dr. Anand for Cardiology as outpatien. S/p Hysterectomy 04/01/[address] Tracy for Endometrial CA, reports no complications since surgery. On arrival, BP 133/66, HR 102, O2 sat 95% on RA, Afebrile. CBC 16.9. Chemistry unremarkable. GFR 84. Troponin negative. INR 1.1. UA negative. CTA Pulm positive for pulmonary embolism and subsegmental arteries supplying bilateral upper lobes but no infiltrate seen. S/p Lovenox 100mg sq in ER. No previous h/o PE. Review of Systems Except as stated in HPI: all other systems reviewed are Neg ROS: 14 point review of systems otherwise negative. Past Family Social History Past Medical History PMH: Depression, HTN, DM and Endometrial CA Past Surgical History PAST SURGICAL HISTORY: Appendectomy, Cataract Surgery, Hysterectomy, Right Knee Replacement, Tonsillectomy Allergies: Coded Allergies: Penicillins (Verified Allergy, Severe, Shortness of Breath, 03/28/17) SWELLING aspirin (Verified Allergy, Severe, Swelling, 03/28/17) SWELLING WITH SHORTNESS OF BREATH Family History PAST FAMILY HISTORY: Reviewed. No h/o DM or CAD Social History PAST SOCIAL HISTORY: Occasional alcohol. Negative for tobacco or drugs. Physical Exam Vital Signs Vital Signs Date Time Temp Pulse Resp B/P (MAP) Pulse Ox O2 Delivery O2 Flow Rate FiO2 04/21/17 17:43 98.0 97 20 143/65 (91) 96 Nasal Cannula 2.00 04/21/17 16:43 96 Nasal Cannula 2.00 04/21/17 16:43 22 96 Nasal Cannula 2.00 04/21/17 16:40 101 22 133/66 (88) 96 Nasal Cannula 2.00 121/58 (79) 04/21/17 16:35 102 20 04/21/17 16:32 98.1 102 22 133/66 (88) 95 Physical Exam PE: GENERAL: Very pleasant elderly white female in no acute distress. On NC HEENT: PERRLA, EOMI. No scleral icterus or conjunctival pallor. No lid lag or facial droop. CARDIOVASCULAR: Regular rate and rhythm. No obvious murmurs to auscultation. No chest tenderness to palpation. RESPIRATORY: No obvious rhonchi or wheezing. Clear to auscultation. Breath sounds equal bilaterally. GASTROINTESTINAL: Abdomen soft, non-tender, nondistended. BS normal. Mild tenderness over surgical site. MUSCULOSKELETAL: Extremities without clubbing, cyanosis, or edema. No obvious deformities. NEUROLOGICAL: Awake, alert and oriented x4. No focal neurologic deficits. Moving both upper and lower extremities spontaneously. Laboratory Laboratory Tests Test 04/21/17 16:35 04/21/17 18:40 White Blood Count 16.9 Red Blood Count 3.99 Hemoglobin 12.5 Hematocrit 37.8 Mean Corpuscular Volume 94.6 Mean Corpuscular Hemoglobin 31.3 Mean Corpuscular Hemoglobin Concent 33.1 Red Cell Distribution Width 13.4 Platelet Count 251 Mean Platelet Volume 7.8 Neutrophils (%) (Auto) 80.1 Lymphocytes (%) (Auto) 9.5 Monocytes (%) (Auto) 10.0 Eosinophils (%) (Auto) 0.2 Basophils (%) (Auto) 0.2 Neutrophils # (Auto) 13.5 Lymphocytes # (Auto) 1.6 Monocytes # (Auto) 1.7 Eosinophils # (Auto) 0.0 Basophils # (Auto) 0.0 CBC Comment DIFF FINAL Differential Comment Prothrombin Time 10.7 Prothromb Time International Ratio 1.1 Activated Partial Thromboplast Time 22.8 Blood Urea Nitrogen 10 Creatinine 0.68 Random Glucose 115 Total Protein 6.5 Albumin 3.0 Calcium Level 8.4 Magnesium Level 1.5 Alkaline Phosphatase 102 Aspartate Amino Transf (AST/SGOT) 13 Alanine Aminotransferase (ALT/SGPT) 17 Total Bilirubin 1.2 Sodium Level 137 Potassium Level 3.9 Chloride Level 101 Carbon Dioxide Level 30.3 Anion Gap 6 Estimat Glomerular Filtration Rate 84 Total Creatine Kinase 29 Troponin I LESS THAN 0.02 B-Type Natriuretic Peptide 28 Lipase 178 Urine Color YELLOW Urine Turbidity CLEAR Urine pH 8.0 Urine Specific Hubbard 1.026 Urine Protein NEG Urine Glucose (UA) NEG Urine Ketones NEG Urine Occult Blood NEG Urine Nitrite NEG Urine Bilirubin NEG Urine Urobilinogen LESS THAN 2.0 Urine Leukocyte Esterase MOD Urine RBC 4 Urine WBC 4 Urine Squamous Epithelial Cells 6 Urine Bacteria RARE Microscopic Urinalysis Comment CULT NOT INDICATED Result Diagram: 04/21/17 1635 04/21/17 1635 Caprinjoe VTE Risk Assessment Caprini VTE Risk Assessment: Mod/High Risk (score >= 2) Caprini Risk Assessment Model Point Value = 1 Point Value = 2 Point Value = 3 Point Value = 5 Age 41-60 Minor surgery BMI > 25 kg/m2 Swollen legs Varicose veins or History of unexplained or recurrent spontaneous Oral contraceptives or hormone replacement Sepsis (< 1 month) Serious lung disease, including pneumonia (< 1 month) Abnormal pulmonary function Acute myocardial infarction Congestive heart failure (< 1 month) History of inflammatory bowel disease Medical patient at bed rest Age 61-74 Arthroscopic surgery Major open surgery (> 45 min) Laparoscopic surgery (> 45 min) Malignancy Confined to bed (> 72 hours) Immobilizing plaster cast Central venous access Age >= 75 History of VTE Family history of VTE Factor V Leiden Prothrombin [id number] Lupus anticoagulant Anticardiolipin antibodies Elevated serum homocysteine Heparin-induced thrombocytopenia Other congenital or acquired thrombophilia Stroke (< 1 month) Elective arthroplasty Hip, pelvis, or leg fracture Acute spinal cord injury (< 1 month) Prophylaxis Regimen Total Risk Factor Score Risk Level Prophylaxis Regimen 0-1 Low Early ambulation 2 Moderate Order ONE of the following: *Sequential Compression Device (SCD) *Heparin 5000 units SQ BID 3-4 Higher Order ONE of the following medications: *Heparin 5000 units SQ TID *Enoxaparin/Lovenox 40 mg SQ daily (WT < 150 kg, CrCl > 30 mL/min) *Enoxaparin/Lovenox 30 mg SQ daily (WT < 150 kg, CrCl > 10-29 mL/min) *Enoxaparin/Lovenox 30 mg SQ BID (WT < 150 kg, CrCl > 30 mL/min) AND/OR *Sequential Compression Device (SCD) 5 or more Highest Order ONE of the following medications: *Heparin 5000 units SQ TID (Preferred with Epidurals) *Enoxaparin/Lovenox 40 mg SQ daily (WT < 150 kg, CrCl > 30 mL/min) *Enoxaparin/Lovenox 30 mg SQ daily (WT < 150 kg, CrCl > 10-29 mL/min) *Enoxaparin/Lovenox 30 mg SQ BID (WT < 150 kg, CrCl > 30 mL/min) AND *Sequential Compression Device (SCD) Assessment and Plan Problem List: (1) Pulmonary embolism ICD Code: I26.99 - Other pulmonary embolism without acute cor pulmonale Status: Acute (2) Chest pain ICD Code: R07.9 - Chest pain, unspecified (3) Dehydration ICD Code: E86.0 - Dehydration (4) Leukocytosis ICD Code: D72.829 - Elevated white blood cell count, unspecified (5) Endometrial cancer ICD Code: C54.1 - Malignant neoplasm of endometrium (6) DM (diabetes mellitus) ICD Code: E11.9 - Type 2 diabetes mellitus without complications Assessment and Plan A/P: 1. PE: acute onset SOB/Chest Pain, CTA Pulm w/ PE in subsegmental arteries supplying bilateral upper lobes, images reviewed by me. No h/o PE. S/p Lovenox 100mg sq in ER, will continue w/ Lovenox 100mg sq bid. Monitor O2. Symbicort/DuoNeb prn for possible bronchospasm. Check Echo to eval for strain. 2. Chest Pain: Likely secondary to bilateral PE. Initial trop negative. Follows w/ Dr. Anand as outpatient, will consult for further evaluation. Check serial cardiac enzymes to eval for ischemia, Telemetry, Statin, resume home Metoprolol. ALLERGY to Aspirin. NTG/Morphine prn. 3. Dehydration: GFR 84, UA negative for UTI, IVF for hydration, repeat labs in am. 4. Leukocytosis: WBC 16.9, likely secondary to PE. No obvious source of infection. CXR with no acute infiltrate, no infiltrate seen on CTA, images reviewed by me. UA negative for UTI. Will repeat labs in a.m. 5. Endometrial CA: S/p Hysterectomy 04/01/[address] Tracy, incisions healing well, has upcoming follow up w/ Dr. Tracy as outpatient. Analgesics/ antiemetics as needed. 6. DM: Sliding scale w/ Accu-Checks. Hold Metformin in light of contrast, possible cardiac intervention. 7. DVT Prophylaxis: Lovenox for acute PE 8. Social work for d/c planning as needed. 9. Case discussed w/ ER physician at length, labs/records/imaging reviewed by me Attempted to call pt's Son at her request, Kasi [phone], however no answer. Physician Certification 2 Midnight Certification Type: Admission for Inpatient Services Order for Inpatient Services The services are ordered in accordance with Medicare regulations or non- Medicare payer requirements, as applicable. In the case of services not specified as inpatient-only, they are appropriately provided as inpatient services in accordance with the 2-midnight benchmark. Estimated LOS (days): 2 days is the estimated time the patient will need to remain in the hospital, assuming treatment plan goals are met and no additional complications. Post-Hospital Plan: Not yet determined Problem Qualifiers (1) Pulmonary embolism: Qualified Codes: I26.99 - Other pulmonary embolism without acute cor pulmonale Janel Harper MD Apr 21, 2017 19:29
[2017-04-21] MEDS ORDERED: ACETAMINOPHEN/HYDROcodone 325 MG/5 MG TAB PO PRN (19:30)
[2017-04-21] MEDS ORDERED: DEXTROSE 50% IN WATER 50 ML VIAL(D50) IV PUSH PRN (19:30)
[2017-04-21] MEDS ORDERED: SENNOSIDES 8.6 MG TAB PO PRN (19:30)
[2017-04-21] MEDS ORDERED: MAGNESIUM HYDROXIDE SUSP 30 ML CUP PO PRN (19:30)
[2017-04-21] MEDS ORDERED: RESP: ALBUTEROL 2.5 MG/IPRATROPIUM 0.5 MG NEB (PRN) NEB (19:30)
[2017-04-21] MEDS ORDERED: SODIUM CHLORIDE 0.9% FLUSH 10 ML FLUSH IV FLUSH PRN (19:30)
[2017-04-21] MEDS ORDERED: ONDANSETRON HCL 4 MG/2 ML VIAL IVP PRN (19:30)
[2017-04-21] MEDS ORDERED: MORPHINE SULFATE 2 MG/ML INJ IV PUSH PRN (19:30)
[2017-04-21] MEDS ORDERED: LACTULOSE SYRUP 20 GM/30 ML CUP PO PRN (19:30)
[2017-04-21] MEDS ORDERED: GLUCAGON 1 MG/ML VIAL OTHER PRN (19:30)
[2017-04-21] MEDS ORDERED: ACETAMINOPHEN 325 MG TAB PO PRN (19:30)
[2017-04-21] MEDS ORDERED: BISACODYL 10 MG SUPP RECTAL PRN (19:30)
[2017-04-21] MEDS: DOCUSATE SODIUM 50 MG/SENNA 8.6 MG TAB PO SCH (21:00)
[2017-04-21] MEDS: INSULIN ASPART SUPPLEMENTAL SCALE SQ SCH ×2 (21:00→21:59)
[2017-04-21] MEDS: SODIUM CHLORIDE 0.9% FLUSH 10 ML FLUSH IV FLUSH SCH (21:53)
[2017-04-21] MEDS: RANOLAZINE 500 MG EXTENDED RELEASE TAB PO SCH (21:53)
[2017-04-22] VITALS (7 sets, daily range): BP systolic 113–149; BP diastolic 56–74; PULSE 66–82; RESP 16–18; TEMP 97.6–99.2; O2SAT 95–98
[2017-04-22] MEDS: SODIUM CHLOR 0.9% 1000 ML INJ 1,000 ML IV SCH ×3 (01:36→15:01)
[2017-04-22] MEDS: DOCUSATE SODIUM 50 MG/SENNA 8.6 MG TAB PO SCH ×2 (08:30→22:52)
[2017-04-22] MEDS: ATORVASTATIN 80 MG TAB PO SCH (08:30)
[2017-04-22] MEDS: RANOLAZINE 500 MG EXTENDED RELEASE TAB PO SCH ×2 (08:30→22:52)
[2017-04-22] MEDS: CITALOPRAM HYDROBROMIDE 20 MG TAB PO SCH (08:31)
[2017-04-22] MEDS: SODIUM CHLORIDE 0.9% FLUSH 10 ML FLUSH IV FLUSH SCH ×2 (08:31→21:00)
[2017-04-22] MEDS: INSULIN ASPART SUPPLEMENTAL SCALE SQ SCH ×3 (08:35→21:00)
[2017-04-22 08:51] LABS: AUTOMATED NEUTROPHIL # 8.5 TH/MM3 (1.8-7.7); BASOPHIL # 0.1 TH/MM3 (0-0.2); BASOPHIL % 0.5 % (0.0-2.0); EOSINOPHIL # 0.1 TH/MM3 (0-0.4); EOSINOPHIL % 0.7 % (0.0-4.0); HEMOGLOBIN 11.5 GM/DL (11.6-15.3); LYMPH % 19.9 % (9.0-44.0); LYMPHOCYTE # 2.6 TH/MM3 (1.0-4.8); MEAN CELL VOLUME 95.2 FL (80.0-100.0); MEAN CORPUSCULAR HEMOGLOBIN 31.3 PG (27.0-34.0); MEAN CORPUSCULAR HGB CONC 32.9 % (32.0-36.0); MEAN PLATELET VOLUME 7.7 FL (7.0-11.0); MONO % 13.1 % (0.0-8.0); MONOCYTE # 1.7 TH/MM3 (0-0.9); NEUT % 65.8 % (16.0-70.0); PLATELET COUNT 210 TH/MM3 (150-450); RED BLOOD COUNT 3.68 MIL/MM3 (4.00-5.30); RED CELL DISTRIBUTION WIDTH 13.6 % (11.6-17.2); WHITE BLOOD COUNT 12.9 TH/MM3 (4.0-11.0)
[2017-04-22] MEDS ORDERED: ENOXAPARIN SODIUM 100 MG/ML SYRINGE SQ SCH (09:00)
[2017-04-22 09:23] LABS: ALBUMIN 2.6 GM/DL (3.4-5.0); AST (GOT) 8 U/L (15-37); BICARBONATE 29.8 MEQ/L (21.0-32.0); BLOOD UREA NITROGEN 13 MG/DL (7-18); CALCIUM 8.6 MG/DL (8.5-10.1); CHLORIDE 100 MEQ/L (98-107); CREATININE 0.68 MG/DL (0.50-1.00); GLOMERULAR FILTRATION RATE 84 ML/MIN (>89); GLUCOSE,RANDOM 97 MG/DL (74-106); SODIUM (NA) 137 MEQ/L (136-145)
[2017-04-22 09:30] LABS: ALKALINE PHOSPHATASE 92 U/L (45-117); ALT (GPT) 14 U/L (10-53); TOTAL BILIRUBIN ADULT 1.4 MG/DL (0.2-1.0); TOTAL PROTEIN 5.8 GM/DL (6.4-8.2); TROPONIN I LESS THAN 0.02 NG/ML (0.02-0.05)
--- NOTE | 2017-04-22 09:36 | MB ---
cc: Tapan Augustin MD DATE OF CONSULT: 04/22/2017 REASON FOR CONSULTATION: Evaluation of chest pain. HISTORY OF PRESENT ILLNESS: Marisa Hassan is a 76-year-old woman well know to Dr. Norwood, actually has an appointment scheduled Saturday. She has a history of hypertension, diabetes and coronary artery disease. I do not have details on her coronary disease; there is no record here at [facility]. She has been on Ranexa and metoprolol as well as lisinopril for blood pressure. She had a hysterectomy on April 01 for endometrial cancer. She has noted having right leg pain and swelling for a couple of weeks, came in because of chest pain which is sharp pain, worse with deep breath and some shortness of breath for the past two days. She has a CT angiogram showing bilateral pulmonary emboli. She is not short of breath at rest. PAST MEDICAL HISTORY: 1. Depression. 2. Hypertension. 3. Diabetes. 4. Coronary artery disease with angina. PAST SURGICAL HISTORY: 1. Appendectomy. 2. Cataract surgery. 3. Hysterectomy. 4. Right total knee replacement. 5. Tonsillectomy. ALLERGIES: ASPIRIN which leads to swelling and hives. PENICILLIN. SOCIAL HISTORY: Alcohol - rarely. No smoking. She is . She has one son in [facility]. FAMILY HISTORY: Her sister had a heart attack. Father committed suicide, homicide of he and his . REVIEW OF SYSTEMS: Negative for bleeding. PHYSICAL EXAMINATION: GENERAL: An obese white female in no acute distress. VITAL SIGNS: Charted. HEENT: Exam unremarkable. NECK: No JVD, no bruits. CHEST: Some diminished breath sounds. No wheezes or rales. CARDIAC EXAM: S1, S2. Regular rate and rhythm. A 1-2/6 systolic ejection murmur. ABDOMEN: Obese, soft, nontender. EXTREMITIES: I do not appreciate any calf swelling but there is slight tenderness in the right calf. Pulses are intact. EKG Sinus rhythm, high QRS voltage, possible left ventricular hypertrophy by voltage. No acute ST-T wave changes. IMAGING STUDIES: CT angiogram was positive for pulmonary emboli seen in bilateral upper lobes. LABORATORY DATA: Hematocrit is 35.0. Troponins are negative. Creatinine is 0.68. IMPRESSION: Coronary artery disease, unstable by history, but the patient has had an acute pulmonary embolism probably related to having surgery on April 01. PLAN: I will start Eliquis 10 mg p.o. b.i.d. Typically we do this for one week and then 5 b.i.d. thereafter. If she is stable, she can be discharged home in a day or two. Check a 2-D echo Doppler study. I have restarted her metoprolol low dose. May restart the other drugs once we know blood pressure stability has been established. MD NELSON Oh/FABRIZIO , 09:24 AM , 09:36 AM
--- NOTE | 2017-04-22 09:39 | HHI.PR ---
Subjective Remarks Patient is in bed says she has chest pain with breathing she also feels short of breath. Says she does not have oxygen at home. No palpitations. No nausea vomiting no diarrhea or constipation. Objective Vitals Vital Signs Date Time Temp Pulse Resp B/P (MAP) Pulse Ox O2 Delivery O2 Flow Rate FiO2 04/22/17 04:08 99.2 77 18 130/64 (86) 95 04/21/17 23:36 99.3 78 18 132/60 (84) 94 04/21/17 20:44 88 18 134/60 (84) 95 04/21/17 20:00 96 Nasal Cannula 2.00 04/21/17 17:43 98.0 97 20 143/65 (91) 96 Nasal Cannula 2.00 04/21/17 16:43 96 Nasal Cannula 2.00 04/21/17 16:43 22 96 Nasal Cannula 2.00 04/21/17 16:40 101 22 133/66 (88) 96 Nasal Cannula 2.00 121/58 (79) 04/21/17 16:35 102 20 04/21/17 16:32 98.1 102 22 133/66 (88) 95 I/O 04/21/17 04/21/17 04/21/17 04/22/17 04/22/17 04/22/17 07:00 15:00 23:00 07:00 15:00 23:00 Output Total 400 ml Balance -400 ml Output Urine Total 400 ml # Voids 3 # Bowel Movements 0 Result Diagram: 04/22/17 0726 04/22/17 [address] Angiography 04/21/17 0000 Signed Impressions: Service Date/Time: Friday, April 21, 2017 18:18 - CONCLUSION: 1. Positive for pulmonary embolism in subsegmental arteries supplying bilateral upper lobes. 2. No focal infiltrates seen. Stevo Colon MD Objective Remarks GENERAL: Very pleasant elderly white female in no acute distress. On NC HEENT: PERRLA, EOMI. No scleral icterus or conjunctival pallor. No lid lag or facial droop. CARDIOVASCULAR: Regular rate and rhythm. No obvious murmurs to auscultation. No chest tenderness to palpation. RESPIRATORY: No obvious rhonchi or wheezing. Clear to auscultation. Breath sounds equal bilaterally. GASTROINTESTINAL: Abdomen soft, non-tender, nondistended. BS normal. Mild tenderness over surgical site. MUSCULOSKELETAL: Extremities without clubbing, cyanosis, or edema. No obvious deformities. NEUROLOGICAL: Awake, alert and oriented x4. No focal neurologic deficits. Moving both upper and lower extremities spontaneously. A/P Problem List: (1) Pulmonary embolism ICD Code: I26.99 - Other pulmonary embolism without acute cor pulmonale Status: Acute (2) Chest pain ICD Code: R07.9 - Chest pain, unspecified (3) Dehydration ICD Code: E86.0 - Dehydration (4) Leukocytosis ICD Code: D72.829 - Elevated white blood cell count, unspecified (5) Endometrial cancer ICD Code: C54.1 - Malignant neoplasm of endometrium (6) DM (diabetes mellitus) ICD Code: E11.9 - Type 2 diabetes mellitus without complications Assessment and Plan 1. PE: acute onset SOB/Chest Pain, CTA Pulm w/ PE in subsegmental arteries supplying bilateral upper lobes, images reviewed by me. No h/o PE. S/p Lovenox 100mg sq in ER, will continue w/ Lovenox 100mg sq bid. Monitor O2. Symbicort/DuoNeb prn for possible bronchospasm. Check Echo to eval for strain. 2. Chest Pain: Likely secondary to bilateral PE. Initial trop negative. Follows w/ Dr. Anand as outpatient, will consult for further evaluation. Check serial cardiac enzymes to eval for ischemia, Telemetry, Statin, resume home Metoprolol. ALLERGY to Aspirin. NTG. Morphine for breakthrough pain Add Tylenol and [place] as needed for chest pain Seen by cardiology appreciated recommendations Dr. Augustin 3. Dehydration: GFR 84, UA negative for UTI, IVF for hydration, repeat labs in am. 4. Leukocytosis: WBC 16.9, likely secondary to PE. No obvious source of infection. CXR with no acute infiltrate, no infiltrate seen on CTA, images reviewed by me. UA negative for UTI. Will repeat labs in a.m. 5. Endometrial CA: S/p Hysterectomy 04/01/[address] Tracy, incisions healing well, has upcoming follow up w/ Dr. Tracy as outpatient. Analgesics/ antiemetics as needed. 6. DM: Sliding scale w/ Accu-Checks. Hold Metformin in light of contrast, possible cardiac intervention. 7. DVT Prophylaxis: Lovenox for acute PE 8. Social work for d/c planning as needed. Discussed with the patient, nurse Discharge plan possible discharge to home tomorrow if patient improves. May need walking oxygen test Problem Qualifiers (1) Pulmonary embolism: Qualified Codes: I26.99 - Other pulmonary embolism without acute cor pulmonale Antoinette Higgins MD Apr 22, 2017 09:39
[2017-04-22] MEDS ORDERED: ACETAMINOPHEN/HYDROcodone 325 MG/5 MG TAB PO PRN (12:00)
[2017-04-22] MEDS ORDERED: ACETAMINOPHEN/HYDROcodone 325 MG/7.5 MG TAB PO PRN (12:00)
[2017-04-22] MEDS ORDERED: ACETAMINOPHEN 325 MG TAB PO PRN (12:00)
[2017-04-22] MEDS: FLUTICASONE 100 MCG/VILANTEROL 25 MCG INHALER INH SCH (12:46)
--- NOTE | 2017-04-22 17:48 | ECHRPT ---
Indication: CARDIOMYOPATHY CONCLUSIONS Normal left ventricular size. Mild concentric left ventricular hypertrophy. The left ventricular systolic function is low normal with an estimated ejection fraction in the rang e of 50- 55%. The right ventricle is mildly dilated. The left atrial size is mildly dilated. The right atrial size is mildly dilated. No atrial level shunt is demonstrated by color flow Doppler interrogation. Mild aortic dilatation at the level of the sinuses of Valsalva. Trace mitral valve regurgitation. Aortic valve sclerosis is present. [id number] aortic valve regurgitation. There is trace tricuspid valve regurgitation. The estimated pulmonary arterial pressure is 39.4 mmHg. Trivial pulmonary valve regurgitation. BP: 149 / 64 HR: 82 Rhythm: Sinus MEASUREMENTS (Male / Female) Normal Values Technical Quality:Fair 2D ECHO LV Diastolic Diameter PLAX 5.0 cm 4.2 - 5.9 / 3.9 - 5.3 cm LV Systolic Diameter PLAX 4.1 cm IVS Diastolic Thickness 1.1 cm 0.6 - 1.0 / 0.6 - 0.9 cm LVPW Diastolic Thickness 0.9 cm 0.6 - 1.0 / 0.6 - 0.9 cm LV Relative Wall Thickness 0.4 RV Internal Dim ED PLAX 4.5 cm LVOT Diameter 2.2 cm M-MODE Aortic Root Diameter MM 4.2 cm LA Systolic Diameter MM 4.1 cm LA Ao Ratio MM 1.0 AV Cusp Separation MM 1.4 cm DOPPLER AV Peak Velocity 184.0 cm/s AV Peak Gradient 13.5 mmHg AI Peak Velocity 345.8 cm/s AI Peak Gradient 47.8 mmHg AI Pressure Half Time 432.0 ms LVOT Peak Velocity 114.0 cm/s LVOT Peak Gradient 5.2 mmHg AV Area Cont Eq pk 2.4 cm MV Area PHT 2.6 cm Mitral E Point Velocity 53.7 cm/s Mitral A Point Velocity 72.3 cm/s Mitral E to A Ratio 0.7 LV E' Lateral Velocity 10.1 cm/s Mitral E to LV E' Lateral Ratio 5.3 LV E' Septal Velocity 6.9 cm/s Mitral E to LV E' Septal Ratio 7.8 TR Peak Velocity 271.0 cm/s TR Peak Gradient 29.4 mmHg Right Atrial Pressure 10.0 mmHg Pulmonary Artery Systolic Pressu 39.4 mmHg Right Ventricular Systolic Press 39.4 mmHg FINDINGS LEFT VENTRICLE Normal left ventricular size. Mild concentric left ventricular hypertrophy. The left ventricular systolic function is low normal with an estimated ejection fraction in the rang e of 50- 55%. RIGHT VENTRICLE The right ventricle is mildly dilated. LEFT ATRIUM The left atrial size is mildly dilated. RIGHT ATRIUM The right atrial size is mildly dilated. ATRIAL SEPTUM No atrial level shunt is demonstrated by color flow Doppler interrogation. AORTA Mild aortic dilatation at the level of the sinuses of Valsalva. MITRAL VALVE Trace mitral valve regurgitation. AORTIC VALVE Aortic valve sclerosis is present. [id number] aortic valve regurgitation. TRICUSPID VALVE There is trace tricuspid valve regurgitation. The estimated pulmonary arterial pressure is 39.4 mmHg. PULMONARY VALVE Trivial pulmonary valve regurgitation. VESSELS The inferior vena cava is normal in size. PERICARDIUM No pericardial effusion. Richard Simmons MD, FACC (Electronically Signed) Final Date:22 April 2017 17:47
--- NOTE | 2017-04-22 19:02 | EKG ---
Date Performed: 04/21/2017 Time Performed: 16:41:07 PTAGE: 76 years EKG: SINUS TACHYCARDIA POSSIBLE LEFT ATRIAL ENLARGEMENT POSSIBLE LEFT VENTRICULAR HYPERTROPHY Co mpared to previous tracing, the sinus tachycardia is new. The voltage criteria for Left ventricular h ypertrophy is also a new finding. Clinical correlation advised ABNORMAL ECG NO PREVIOUS TRACING DOCTOR: Flora Osborne Interpretating Date/Time 04/22/2017 19:01:41
[2017-04-22] MEDS ORDERED: PILL SPLITTER OTHER PRN (21:00)
[2017-04-22] MEDS: METOPROLOL TARTRATE 25 MG TAB PO SCH (22:52)
[2017-04-22] MEDS: APIXABAN 5 MG TABLET PO SCH (22:52)
[2017-04-23] MEDS: SODIUM CHLOR 0.9% 1000 ML INJ 1,000 ML IV SCH (01:25)
[2017-04-23 05:00] VITALS: BP 124/62; PULSE 71; RESP 18; TEMP 98; O2SAT 98
[2017-04-23 07:40] VITALS: BP 145/65; PULSE 69; RESP 16; TEMP 98; O2SAT 95
[2017-04-23] MEDS: INSULIN ASPART SUPPLEMENTAL SCALE SQ SCH ×4 (08:00→21:00)
--- NOTE | 2017-04-23 08:54 | HHI.PR ---
Subjective Remarks Still with sob. Requiring O2 supplement. Failed O2 walking test . Patient in bed, says she still has chest pain No fever ro chills.No cough. no n//d/c. Objective Vitals Vital Signs Date Time Temp Pulse Resp B/P (MAP) Pulse Ox O2 Delivery O2 Flow Rate FiO2 04/23/17 08:01 2.00 04/23/17 07:40 98.0 69 16 145/65 (91) 95 04/23/17 05:00 98.0 71 18 124/62 (82) 98 04/22/17 22:14 98.1 75 18 130/62 (84) 95 04/22/17 20:00 98 Nasal Cannula 2.00 04/22/17 20:00 97.8 74 18 131/74 (93) 97 04/22/17 15:29 98.0 75 16 137/68 (91) 95 04/22/17 11:38 98.2 66 18 113/56 (75) 96 04/22/17 09:36 97.6 82 18 149/64 (92) 98 I/O 04/22/17 04/22/17 04/22/17 04/23/17 04/23/17 04/23/17 06:59 14:59 22:59 06:59 14:59 22:59 Intake Total 1750 ml 400 ml Output Total 900 ml 300 ml Balance 850 ml 100 ml Intake Oral 750 ml 400 ml IV Total 1000 ml Output Urine Total 900 ml 300 ml Result Diagram: 04/22/17 0726 04/22/17 [address] Angiography 04/21/17 0000 Signed Impressions: Service Date/Time: Friday, April 21, 2017 18:18 - CONCLUSION: 1. Positive for pulmonary embolism in subsegmental arteries supplying bilateral upper lobes. 2. No focal infiltrates seen. Stevo Colon MD Objective Remarks GENERAL: Very pleasant elderly white female in no acute distress. On [place] HEENT: PERRLA, EOMI. No scleral icterus or conjunctival pallor. No lid lag or facial droop. CARDIOVASCULAR: Regular rate and rhythm. No obvious murmurs to auscultation. No chest tenderness to palpation. RESPIRATORY: No obvious rhonchi or wheezing. Clear to auscultation. Breath sounds equal bilaterally. GASTROINTESTINAL: Abdomen soft, non-tender, nondistended. BS normal. Mild tenderness over surgical site. MUSCULOSKELETAL: Extremities without clubbing, cyanosis, or edema. No obvious deformities. NEUROLOGICAL: Awake, alert and oriented x4. No focal neurologic deficits. Moving both upper and lower extremities spontaneously. A/P Problem List: (1) Pulmonary embolism ICD Code: I26.99 - Other pulmonary embolism without acute cor pulmonale Status: Acute (2) Chest pain ICD Code: R07.9 - Chest pain, unspecified (3) Dehydration ICD Code: E86.0 - Dehydration (4) Leukocytosis ICD Code: D72.829 - Elevated white blood cell count, unspecified (5) Endometrial cancer ICD Code: C54.1 - Malignant neoplasm of endometrium (6) DM (diabetes mellitus) ICD Code: E11.9 - Type 2 diabetes mellitus without complications Assessment and Plan 1. PE: acute onset SOB/Chest Pain, CTA Pulm w/ PE in subsegmental arteries supplying bilateral upper lobes, images reviewed by me. No h/o PE. S/p Lovenox 100mg sq in ER, will continue w/ Lovenox 100mg sq bid. Monitor O2. Symbicort/DuoNeb prn for possible bronchospasm. Check Echo to eval for strain. 2. Chest Pain: Likely secondary to bilateral PE. Initial trop negative. Follows w/ Dr. Anand as outpatient, will consult for further evaluation. Check serial cardiac enzymes to eval for ischemia, Telemetry, Statin, resume home Metoprolol. ALLERGY to Aspirin. NTG. Morphine for breakthrough pain Add Tylenol and [place] as needed for chest pain Seen by cardiology appreciated recommendations Dr. Augustin. Started on eliquis , to have eliquis at discharge 3. Dehydration: GFR 84, UA negative for UTI, IVF for hydration, repeat labs in am. 4. Leukocytosis: WBC 16.9, likely secondary to PE. No obvious source of infection. CXR with no acute infiltrate, no infiltrate seen on CTA, images reviewed by me. UA negative for UTI. Will repeat labs in a.m. 5. Endometrial CA: S/p Hysterectomy 04/01/[address] Tracy, incisions healing well, has upcoming follow up w/ Dr. Tracy as outpatient. Analgesics/ antiemetics as needed. 6. DM: Sliding scale w/ Accu-Checks. Hold Metformin in light of contrast, possible cardiac intervention. 7. DVT Prophylaxis: Lovenox for acute PE 8. Social work for d/c planning as needed. Discussed with the patient, nurse, Dr Augustin cardiology Not cleared by cardiology for DC Discharge plan possible discharge to home tomorrow if patient improves. Failed o2 walking test today will need at DC, need repeat walking oxygen test tomorrow Problem Qualifiers (1) Pulmonary embolism: Qualified Codes: I26.99 - Other pulmonary embolism without acute cor pulmonale Antoinette Higgins MD Apr 23, 2017 08:54
--- NOTE | 2017-04-23 08:56 | HHI.DS ---
Discharge Summary Admission Date Apr 21, 2017 at 19:21 Discharge Date: Apr 24, 2017 Admitting Diagnosis PULMONARY EMBOLISM (1) Pulmonary embolism ICD Code: I26.99 - Other pulmonary embolism without acute cor pulmonale Status: Acute (2) Chest pain ICD Code: R07.9 - Chest pain, unspecified (3) Dehydration ICD Code: E86.0 - Dehydration (4) Leukocytosis ICD Code: D72.829 - Elevated white blood cell count, unspecified (5) Endometrial cancer ICD Code: C54.1 - Malignant neoplasm of endometrium (6) DM (diabetes mellitus) ICD Code: E11.9 - Type 2 diabetes mellitus without complications Procedures none Brief History - From Admission This is a 76-year-old female with a PMH of Depression, HTN, DM and Endometrial CA who presented to the ER w/ complaints of chest pain and SOB x2 days. States pain is substernal, intermittent, 8-9/10, w/ radiation to right shoulder, worse w/ inspiration. Denies fever, chills or cough. Follows w/ Dr. Anand for Cardiology as outpatien. S/p Hysterectomy 04/01/[address] Tracy for Endometrial CA, reports no complications since surgery. On arrival, BP 133/66, HR 102, O2 sat 95% on RA, Afebrile. CBC 16.9. Chemistry unremarkable. GFR 84. Troponin negative. INR 1.1. UA negative. CTA Pulm positive for pulmonary embolism and subsegmental arteries supplying bilateral upper lobes but no infiltrate seen. S/p Lovenox 100mg sq in ER. No previous h/o PE. CBC/BMP: 04/22/17 0726 04/22/17 0726 Significant Findings Laboratory Tests Test 04/21/17 16:35 04/21/17 18:40 04/22/17 00:07 04/22/17 07:26 White Blood Count 16.9 TH/MM3 (4.0-11.0) 12.9 TH/MM3 (4.0-11.0) Red Blood Count 3.99 MIL/MM3 (4.00-5.30) 3.68 MIL/MM3 (4.00-5.30) Neutrophils (%) (Auto) 80.1 % (16.0-70.0) Monocytes (%) (Auto) 10.0 % (0.0-8.0) 13.1 % (0.0-8.0) Neutrophils # (Auto) 13.5 TH/MM3 (1.8-7.7) 8.5 TH/MM3 (1.8-7.7) Monocytes # (Auto) 1.7 TH/MM3 (0-0.9) 1.7 TH/MM3 (0-0.9) Activated Partial Thromboplast Time 22.8 SEC (24.3-30.1) Random Glucose 115 MG/DL (74-106) Albumin 3.0 GM/DL (3.4-5.0) 2.6 GM/DL (3.4-5.0) Calcium Level 8.4 MG/DL (8.5-10.1) Aspartate Amino Transf (AST/SGOT) 13 U/L (15-37) 8 U/L (15-37) Total Bilirubin 1.2 MG/DL (0.2-1.0) 1.4 MG/DL (0.2-1.0) Estimat Glomerular Filtration Rate 84 ML/MIN (>89) 84 ML/MIN (>89) Troponin I LESS THAN 0.02 NG/ML LESS THAN 0.02 NG/ML LESS THAN 0.02 NG/ML Urine Leukocyte Esterase MOD (NEG) Urine RBC 4 /hpf (0-3) Urine Bacteria RARE /hpf (NONE) Hemoglobin 11.5 GM/DL (11.6-15.3) Total Protein 5.8 GM/DL (6.4-8.2) Imaging Last Impressions CT Angiography 04/21/17 0000 Signed Impressions: Service Date/Time: Friday, April 21, 2017 18:18 - CONCLUSION: 1. Positive for pulmonary embolism in subsegmental arteries supplying bilateral upper lobes. 2. No focal infiltrates seen. Stevo Colon MD PE at Discharge GENERAL: Very pleasant elderly white female in no acute distress. On [place] HEENT: PERRLA, EOMI. No scleral icterus or conjunctival pallor. No lid lag or facial droop. CARDIOVASCULAR: Regular rate and rhythm. No obvious murmurs to auscultation. No chest tenderness to palpation. RESPIRATORY: No obvious rhonchi or wheezing. Clear to auscultation. Breath sounds equal bilaterally. GASTROINTESTINAL: Abdomen soft, non-tender, nondistended. BS normal. Mild tenderness over surgical site. MUSCULOSKELETAL: Extremities without clubbing, cyanosis, or edema. No obvious deformities. NEUROLOGICAL: Awake, alert and oriented x4. No focal neurologic deficits. Moving both upper and lower extremities spontaneously. Pt update on day of discharge The patient did not acute distress. No constipation. She is asked ambulating with physical therapy with a walker. She wants to go home. Hospital Course 1. Bilateral PE with acute hypohemic respiratory failure: acute onset SOB/ Chest Pain, CTA Pulm w/ PE in subsegmental arteries supplying bilateral upper lobes, images reviewed by me. No h/o PE. S/p Lovenox 100mg sq in ER, will continue w/ Lovenox 100mg sq bid. Monitor O2. Symbicort/DuoNeb prn for possible bronchospasm. Check Echo normal ejection fraction 2. Chest Pain: Likely secondary to bilateral PE. Trop negative. Follows w/ Dr. Anand as outpatient, will consult for further evaluation. Check serial cardiac enzymes to eval for ischemia, Telemetry, Statin, resume home Metoprolol. ALLERGY to Aspirin. NTG. Morphine for breakthrough pain Add Tylenol and [place] as needed for chest pain Seen by cardiology appreciated recommendations Dr. Augustin. Started on eliquis , to have eliquis at discharge 3. Dehydration: GFR 84, UA negative for UTI, IVF for hydration, repeat labs in am. 4. Leukocytosis: WBC 16.9, on admission likely secondary to PE. No obvious source of infection. CXR with no acute infiltrate, no infiltrate seen on CTA, images reviewed by me. UA negative for UTI. 5. Endometrial CA: S/p Hysterectomy 04/01/[address] Tracy, incisions healing well, has upcoming follow up w/ Dr. Tracy as outpatient. Analgesics/ antiemetics as needed. 6. DM: Sliding scale w/ Accu-Checks. Hold Metformin in light of contrast 7. DVT Prophylaxis: Lovenox for acute PE 8. Social work for d/c planning as needed. Arrange for home O2 at home Patient failed repeatedly oxygen walking test. She needs oxygen at home. Case management consulted. Patient is improved no pain, shortness of breath at baseline, she is walking with a walker with physical therapy and appears to not acute distress. Patient is discharged home in stable condition to follow-up as outpatient with PCP and consultants. Pt Condition on Discharge: Stable Discharge Disposition: Discharge Home Discharge Time: > 30 minutes Discharge Instructions DIET: Follow Instructions for: Heart Healthy Diet Activities you can perform: Regular-No Restrictions Follow up Referrals: Cardiology - 2 Weeks PCP Follow-up - 1 Week New Medications: Apixaban (Eliquis) 5 Mg Tab 5 MG PO BID for Blood Clot Prevention, #60 TAB 0 Refills Start date 04/29/16. This is after 7 day dose of Apixaban 10mg BID. Lisinopril (Lisinopril) 5 Mg Tab 5 MG PO DAILY for Blood Pressure Management, #30 TAB 0 Refills Oxygen (O2) (Oxygen (O2)) Device LITER RICHARD.CANULA CONTINUOUS for Prevent Hypoxemia, #2 Oxygen Concentrator Portable Gaseous 2 L/min via Nasal Canula Continuous For 99 months Walker with Front Wheels (Walker with Front Wheels) 1 Mis Mis EA .XX DIRECTED, #1 0 Refills Apixaban (Eliquis) 5 Mg Tab 10 MG PO BID for Pulmonary Embolism for 6 Days, #12 TAB Start date 04/22/17, stop date 7 days after Metoprolol Tartrate (Metoprolol Tartrate) 25 Mg Tab 12.5 MG PO Q12HR for Blood Pressure Management, #60 TAB Continued Medications: Atorvastatin (Atorvastatin) 80 Mg Tab 80 MG PO DAILY for Cholesterol Management, #30 TAB 0 Refills Cholecalciferol (Vitamin D3) 2,000 Unit Cap 2000 UNITS PO DAILY for Nutritional Supplement, #1 BOTTLE 0 Refills Citalopram (Citalopram) 20 Mg Tab 20 MG PO DAILY for Control Depression, #30 TAB 0 Refills Dexlansoprazole (Dexilant) 30 Mg Cap.bp 1 CAP PO DAILY Fluticasone-Vilanterol Inh (Breo Ellipta Inh) 100-25 Mcg/Act Inh 1 PUFF INH DAILY, #1 INHALER 0 Refills Use daily at the same time. Folic Acid-Vit B6-Vit B12-Vit (Animi-3 1 mg) 500-1,000-1 Cap 2 CAP PO DAILY Metformin (Metformin) 500 Mg Tab 500 MG PO BIDPC for Blood Sugar Management, #60 TAB 0 Refills [place]-3/Dha/Epa/Fish Oil (Fish Oil 1,000 mg Softgel) 1,000 Mg (120 Mg-180 Mg) Capsule 1 CAP PO DAILY Ranolazine ER 12 HR (Ranexa ER 12 HR) 500 Mg Tab 500 MG PO BID for Chest Pain, #60 TAB 0 Refills Discontinued Medications: Lisinopril (Lisinopril) 40 Mg Tab 40 MG PO DAILY for Blood Pressure Management, #30 TAB 0 Refills Metoprolol Tartrate (Metoprolol Tartrate) 50 Mg Tab 25 MG PO DAILY, #30 TAB 0 Refills Antoinette Higgins MD Apr 23, 2017 08:55
[2017-04-23] MEDS ORDERED: LISI-519 PO (09:02)
[2017-04-23] MEDS ORDERED: APIX5TAB PO (09:02)
[2017-04-23] MEDS ORDERED: METO25TA3 PO (09:02)
[2017-04-23] MEDS ORDERED: GETGO ROLLING W1 MI1 (09:05)
--- NOTE | 2017-04-23 09:07 | HHI.FF ---
Face to Face Verification Diagnosis: (1) Pulmonary embolism (2) DM (diabetes mellitus) (3) Dehydration Physical Therapy Order: Evaluate and Treat Home Health Nursing Order: Medical education Signs/symptoms of disease process CHF education Medication education-adverse effect Nursing assessment with vital signs I have seen patient Marisa Hassan on 04/23/17. My clinical findings support the need for the requested home health care services because: Ltd mobility - disease progression Patient has SOB I certify that my clinical findings support that this patient is homebound because: Post-op weakness Hx COPD- exertion dyspnea/weakness Jonathan Hood Apr 23, 2017 09:07
[2017-04-23] MEDS: ATORVASTATIN 80 MG TAB PO SCH (09:11)
[2017-04-23] MEDS: DOCUSATE SODIUM 50 MG/SENNA 8.6 MG TAB PO SCH ×2 (09:11→20:40)
[2017-04-23] MEDS: CITALOPRAM HYDROBROMIDE 20 MG TAB PO SCH (09:11)
[2017-04-23] MEDS: APIXABAN 5 MG TABLET PO SCH ×2 (09:11→20:40)
[2017-04-23] MEDS: RANOLAZINE 500 MG EXTENDED RELEASE TAB PO SCH ×2 (09:11→20:40)
[2017-04-23] MEDS: SODIUM CHLORIDE 0.9% FLUSH 10 ML FLUSH IV FLUSH SCH ×2 (09:12→21:00)
[2017-04-23] MEDS: FLUTICASONE 100 MCG/VILANTEROL 25 MCG INHALER INH SCH (09:12)
[2017-04-23] MEDS: METOPROLOL TARTRATE 25 MG TAB PO SCH ×2 (09:12→20:40)
[2017-04-23] MEDS ORDERED: OXYGENDME NAS.CANULA (09:31)
[2017-04-23 11:54] VITALS: BP 106/51; PULSE 73; RESP 16; TEMP 98.4; O2SAT 96
[2017-04-23 14:58] VITALS: BP 113/57; PULSE 71; RESP 16; TEMP 97.9; O2SAT 95
[2017-04-23 19:36] VITALS: BP 120/56; PULSE 82; RESP 18; TEMP 98.2; O2SAT 94
[2017-04-23 20:00] VITALS: O2SAT 96
[2017-04-24] VITALS (9 sets, daily range): BP systolic 131–176; BP diastolic 61–75; PULSE 60–69; RESP 16–20; TEMP 98–98.8; O2SAT 96–98
[2017-04-24] MEDS: INSULIN ASPART SUPPLEMENTAL SCALE SQ SCH ×4 (08:00→21:00)
[2017-04-24] MEDS: SODIUM CHLORIDE 0.9% FLUSH 10 ML FLUSH IV FLUSH SCH ×2 (10:01→20:47)
[2017-04-24] MEDS: METOPROLOL TARTRATE 25 MG TAB PO SCH ×2 (10:02→20:49)
[2017-04-24] MEDS: RANOLAZINE 500 MG EXTENDED RELEASE TAB PO SCH ×2 (10:02→20:47)
[2017-04-24] MEDS: APIXABAN 5 MG TABLET PO SCH ×2 (10:02→20:48)
[2017-04-24] MEDS: CITALOPRAM HYDROBROMIDE 20 MG TAB PO SCH (10:03)
[2017-04-24] MEDS: ATORVASTATIN 80 MG TAB PO SCH (10:03)
[2017-04-24] MEDS: DOCUSATE SODIUM 50 MG/SENNA 8.6 MG TAB PO SCH ×2 (10:03→20:47)
[2017-04-24] MEDS: FLUTICASONE 100 MCG/VILANTEROL 25 MCG INHALER INH SCH (10:03)
[2017-04-24] MEDS ORDERED: WALKER WHEELS/F1 MIS (10:17)
[2017-04-24] MEDS: LISINOPRIL 10 MG TAB PO SCH (13:31)
[2017-04-25 00:01] VITALS: BP 139/64; PULSE 72; RESP 18; TEMP 98.7; O2SAT 96
[2017-04-25 03:33] VITALS: BP 133/63; PULSE 69; RESP 18; TEMP 98.1; O2SAT 98
[2017-04-25 04:00] VITALS: PULSE 67
[2017-04-25] MEDS: INSULIN ASPART SUPPLEMENTAL SCALE SQ SCH ×2 (08:00→12:00)
--- NOTE | 2017-04-25 08:31 | HHI.PR ---
Subjective Remarks Late entry the patient was seen earlier morning on 04/24/17 The patient did not acute distress. No constipation. She is asked ambulating with physical therapy with a walker. She wants to go home. Objective Vitals Vital Signs Date Time Temp Pulse Resp B/P (MAP) Pulse Ox O2 Delivery O2 Flow Rate FiO2 04/25/17 04:00 67 04/25/17 03:33 98.1 69 18 133/63 (86) 98 04/25/17 00:01 98.7 72 18 139/64 (89) 96 04/24/17 16:27 98.8 63 18 144/69 (94) 98 04/24/17 16:01 68 04/24/17 12:40 98.0 62 16 139/67 (91) 97 04/24/17 11:32 2.00 04/24/17 11:30 61 I/O 04/24/17 04/24/17 04/24/17 04/25/17 04/25/17 04/25/17 07:00 15:00 23:00 07:00 15:00 23:00 Intake Total 240 ml 240 ml Balance 240 ml 240 ml Intake Oral 240 ml 240 ml # Voids 1 Result Diagram: 04/22/17 0726 04/22/17 [address] Angiography 04/21/17 0000 Signed Impressions: Service Date/Time: Friday, April 21, 2017 18:18 - CONCLUSION: 1. Positive for pulmonary embolism in subsegmental arteries supplying bilateral upper lobes. 2. No focal infiltrates seen. Stevo Colon MD Objective Remarks GENERAL: Very pleasant elderly white female in no acute distress. On [place] HEENT: PERRLA, EOMI. No scleral icterus or conjunctival pallor. No lid lag or facial droop. CARDIOVASCULAR: Regular rate and rhythm. No obvious murmurs to auscultation. No chest tenderness to palpation. RESPIRATORY: No obvious rhonchi or wheezing. Clear to auscultation. Breath sounds equal bilaterally. GASTROINTESTINAL: Abdomen soft, non-tender, nondistended. BS normal. Mild tenderness over surgical site. MUSCULOSKELETAL: Extremities without clubbing, cyanosis, or edema. No obvious deformities. NEUROLOGICAL: Awake, alert and oriented x4. No focal neurologic deficits. Moving both upper and lower extremities spontaneously. Procedures none A/P Problem List: (1) Pulmonary embolism ICD Code: I26.99 - Other pulmonary embolism without acute cor pulmonale Status: Acute (2) Chest pain ICD Code: R07.9 - Chest pain, unspecified (3) Dehydration ICD Code: E86.0 - Dehydration (4) Leukocytosis ICD Code: D72.829 - Elevated white blood cell count, unspecified (5) Endometrial cancer ICD Code: C54.1 - Malignant neoplasm of endometrium (6) DM (diabetes mellitus) ICD Code: E11.9 - Type 2 diabetes mellitus without complications Assessment and Plan 1. Bilateral PE with acute hypohemic respiratory failure: acute onset SOB/ Chest Pain, CTA Pulm w/ PE in subsegmental arteries supplying bilateral upper lobes, images reviewed by me. No h/o PE. S/p Lovenox 100mg sq in ER, will continue w/ Lovenox 100mg sq bid. Monitor O2. Symbicort/DuoNeb prn for possible bronchospasm. Check Echo normal ejection fraction 2. Chest Pain: Likely secondary to bilateral PE. Trop negative. Follows w/ Dr. Anand as outpatient, will consult for further evaluation. Check serial cardiac enzymes to eval for ischemia, Telemetry, Statin, resume home Metoprolol. ALLERGY to Aspirin. NTG. Morphine for breakthrough pain Add Tylenol and [place] as needed for chest pain Seen by cardiology appreciated recommendations Dr. Augustin. Started on eliquis , to have eliquis at discharge 3. Dehydration: GFR 84, UA negative for UTI, IVF for hydration, repeat labs in am. 4. Leukocytosis: WBC 16.9, on admission likely secondary to PE. No obvious source of infection. CXR with no acute infiltrate, no infiltrate seen on CTA, images reviewed by me. UA negative for UTI. 5. Endometrial CA: S/p Hysterectomy 04/01/[address] Tracy, incisions healing well, has upcoming follow up w/ Dr. Tracy as outpatient. Analgesics/ antiemetics as needed. 6. DM: Sliding scale w/ Accu-Checks. Hold Metformin in light of contrast 7. DVT Prophylaxis: Lovenox for acute PE 8. Case management consulted for d/c planning as needed. Arrange for home O2 at home, walker at home Patient failed repeatedly oxygen walking test. She needs oxygen at home. Case management consulted. Patient is improved no pain, shortness of breath at baseline, she is walking with a walker with physical therapy and appears to not acute distress. Patient is discharged home in stable condition to follow-up as outpatient with PCP and consultants. Problem Qualifiers (1) Pulmonary embolism: Qualified Codes: I26.99 - Other pulmonary embolism without acute cor pulmonale Antoinette Higgins MD Apr 25, 2017 08:31
[2017-04-25] MEDS ORDERED: APIX5TAB PO ×4 (08:32→09:13)
--- NOTE | 2017-04-25 08:35 | HHI.PR ---
Subjective Remarks Awaiting for the walker. Had delivered the O2. Patient appears in nad. No n/v/d/c. Eating fairly well. Objective Vitals Vital Signs Date Time Temp Pulse Resp B/P (MAP) Pulse Ox O2 Delivery O2 Flow Rate FiO2 04/25/17 04:00 67 04/25/17 03:33 98.1 69 18 133/63 (86) 98 04/25/17 00:01 98.7 72 18 139/64 (89) 96 04/24/17 16:27 98.8 63 18 144/69 (94) 98 04/24/17 16:01 68 04/24/17 12:40 98.0 62 16 139/67 (91) 97 04/24/17 11:32 2.00 04/24/17 11:30 61 I/O 04/24/17 04/24/17 04/24/17 04/25/17 04/25/17 04/25/17 07:00 15:00 23:00 07:00 15:00 23:00 Intake Total 240 ml 240 ml Balance 240 ml 240 ml Intake Oral 240 ml 240 ml # Voids 1 Result Diagram: 04/22/17 0726 04/22/17 [address] Angiography 04/21/17 0000 Signed Impressions: Service Date/Time: Friday, April 21, 2017 18:18 - CONCLUSION: 1. Positive for pulmonary embolism in subsegmental arteries supplying bilateral upper lobes. 2. No focal infiltrates seen. Stevo Colon MD Objective Remarks GENERAL: Very pleasant elderly white female in no acute distress. On [place] HEENT: PERRLA, EOMI. No scleral icterus or conjunctival pallor. No lid lag or facial droop. CARDIOVASCULAR: Regular rate and rhythm. No obvious murmurs to auscultation. No chest tenderness to palpation. RESPIRATORY: No obvious rhonchi or wheezing. Clear to auscultation. Breath sounds equal bilaterally. GASTROINTESTINAL: Abdomen soft, non-tender, nondistended. BS normal. Mild tenderness over surgical site. MUSCULOSKELETAL: Extremities without clubbing, cyanosis, or edema. No obvious deformities. NEUROLOGICAL: Awake, alert and oriented x4. No focal neurologic deficits. Moving both upper and lower extremities spontaneously. Procedures none A/P Problem List: (1) Pulmonary embolism ICD Code: I26.99 - Other pulmonary embolism without acute cor pulmonale Status: Acute (2) Chest pain ICD Code: R07.9 - Chest pain, unspecified (3) Dehydration ICD Code: E86.0 - Dehydration (4) Leukocytosis ICD Code: D72.829 - Elevated white blood cell count, unspecified (5) Endometrial cancer ICD Code: C54.1 - Malignant neoplasm of endometrium (6) DM (diabetes mellitus) ICD Code: E11.9 - Type 2 diabetes mellitus without complications Assessment and Plan 1. Bilateral PE with acute hypohemic respiratory failure: acute onset SOB/ Chest Pain, CTA Pulm w/ PE in subsegmental arteries supplying bilateral upper lobes, images reviewed by me. No h/o PE. S/p Lovenox 100mg sq in ER, will continue w/ Lovenox 100mg sq bid. Monitor O2. Symbicort/DuoNeb prn for possible bronchospasm. Check Echo normal ejection fraction 2. Chest Pain: Likely secondary to bilateral PE. Trop negative. Follows w/ Dr. Anand as outpatient, will consult for further evaluation. Check serial cardiac enzymes to eval for ischemia, Telemetry, Statin, resume home Metoprolol. ALLERGY to Aspirin. NTG. Morphine for breakthrough pain Add Tylenol and [place] as needed for chest pain Seen by cardiology appreciated recommendations Dr. Augustin. Started on eliquis , to have eliquis at discharge 3. Dehydration: GFR 84, UA negative for UTI, IVF for hydration, repeat labs in am. 4. Leukocytosis: WBC 16.9, on admission likely secondary to PE. No obvious source of infection. CXR with no acute infiltrate, no infiltrate seen on CTA, images reviewed by me. UA negative for UTI. 5. Endometrial CA: S/p Hysterectomy 04/01/[address] Tracy, incisions healing well, has upcoming follow up w/ Dr. Tracy as outpatient. Analgesics/ antiemetics as needed. 6. DM: Sliding scale w/ Accu-Checks. Hold Metformin in light of contrast 7. DVT Prophylaxis: Lovenox for acute PE 8. Case management consulted for d/c planning as needed. Arrange for home O2 at home, walker at home Patient failed repeatedly oxygen walking test. She needs oxygen at home. Case management consulted and arranged for home O2 Patient is improved no pain, shortness of breath at baseline, she is walking with a walker with physical therapy and appears to not acute distress. Patient is discharged home in stable condition to follow-up as outpatient with PCP and consultants. Problem Qualifiers (1) Pulmonary embolism: Qualified Codes: I26.99 - Other pulmonary embolism without acute cor pulmonale Antoinette Higgins MD Apr 25, 2017 08:35
[2017-04-25 08:43] VITALS: BP 147/65; PULSE 73; RESP 20; TEMP 98.3; O2SAT 97
[2017-04-25] MEDS: DOCUSATE SODIUM 50 MG/SENNA 8.6 MG TAB PO SCH (09:00)
[2017-04-25] MEDS: SODIUM CHLORIDE 0.9% FLUSH 10 ML FLUSH IV FLUSH SCH (09:00)
[2017-04-25] MEDS: METOPROLOL TARTRATE 25 MG TAB PO SCH (09:07)
[2017-04-25] MEDS: RANOLAZINE 500 MG EXTENDED RELEASE TAB PO SCH (09:07)
[2017-04-25] MEDS: APIXABAN 5 MG TABLET PO SCH (09:07)
[2017-04-25] MEDS: ATORVASTATIN 80 MG TAB PO SCH (09:07)
[2017-04-25] MEDS: FLUTICASONE 100 MCG/VILANTEROL 25 MCG INHALER INH SCH (09:07)
[2017-04-25] MEDS: CITALOPRAM HYDROBROMIDE 20 MG TAB PO SCH (09:07)
[2017-04-25] MEDS: LISINOPRIL 10 MG TAB PO SCH (09:08)
== END 2017-04-25 14:24 | disposition home health service (06) | DRG 175 ==
LOC: NEPC 16:18 → NEDA 19:21 → NEPGCP 21:18
PROVIDERS: ADMIT Hospitalist; ATTEND Hospitalist
DX: I26.99 Other pulmonary embolism without acute cor pulmonale (principal); J96.01 Acute respiratory failure with hypoxia; E86.0 Dehydration; E11.9 Type 2 diabetes mellitus without complications; Z79.84 Long term (current) use of oral hypoglycemic drugs; Z85.42 Personal history of malignant neoplasm of other parts of uterus; Z98.890 Other specified postprocedural states; I10 Essential (primary) hypertension; K21.9 Gastro-esophageal reflux disease without esophagitis; J45.909 Unspecified asthma, uncomplicated; E78.5 Hyperlipidemia, unspecified; I25.10 Atherosclerotic heart disease of native coronary artery without angina pectoris; Z88.6 Allergy status to analgesic agent; Z96.651 Presence of right artificial knee joint
CPT/HCPCS: 71045; 71275; 80053; 81001; 82550; 82948; 83690; 83735; 83880; 84484; 85025; 85610; 85730; 93005; 93306; 94618; J1650; J7030; Q9967